=== PATIENT | male | born 1990 | race Caucasian/White ===

== ENCOUNTER → 2023-10-21 12:12 | Outpatient (REF) | payer OTHER, SELFPAY | LOC: MRI 3T 12:12 | PROVIDERS: ATTENDING PHYSICIAN Internal Medicine; FAMILY PHYSICIAN Physician Assistant Medical | DX: K50.00 Crohn's disease of small intestine without complications (principal) | CPT/HCPCS: 72197; 74183; A9575 ==

== ENCOUNTER 2024-05-31 22:27 | Inpatient (IN) | payer BC, SELFPAY ==
[2024-05-31] VITALS (7 sets, daily range): BP systolic 109–122; BP diastolic 63–80; BMI 18.7
[2024-05-31 16:55] LABS: % Basophils 0.4 % (0-2); % Eosinophils 0.1 % (0-6); % Immature Granulocytes 0.3 % (0-0.5); % Lymphocytes 11.4 % (20.5-51.1); % Monocytes 4.5 % (1.7-9.3); % Neutrophils 83.3 % (42.2-75.2); Absolute Lymphocytes 1.2 10^3/uL (1.2-3.4); Absolute Monocytes 0.5 10^3/uL (0.1-0.6); Absolute Neutrophils 8.6 10^3/uL (1.4-6.5); Hematocrit 39.4 % (39.0-52.0); Hemoglobin 13.1 g/dL (13.0-18.0); Mean Corp Hgb Conc. 33.2 g/dL (33.0-37.0); Mean Corpuscular Hgb 28.1 pg (27.0-31.0); Mean Corpuscular Volume 84.4 fL (80.0-94.0); Mean Platelet Volume 10.2 fL (7.4-10.4); Nucleated Red Blood Cells % 0 % (-); Platelet Count 251 10^3/uL (130-400); Red Blood Cell Count 4.67 10^6/uL (4.70-6.10); Red Cell Dist. Width 12.5 % (11.5-14.5); White Blood Cell Count 10.4 10^3/uL (4.8-10.8)
[2024-05-31 17:14] LABS: ALT (SGPT) 16 U/L (0-50); AST (SGOT) 25 U/L (17-59); Albumin 4.8 g/dl (3.5-5.0); Alkaline Phosphatase 49 U/L (38-126); Blood Urea Nitrogen 18 mg/dl (9-20); Calcium 9.9 mg/dl (8.4-10.2); Carbon Dioxide 24 mmol/L (22-30); Chloride 103 mmol/L (98-107); Estimated Creatinine Clearance 88 ml/min; Glucose 99 mg/dl (70-99); Lipase 109 U/L (23-300); Potassium 4.5 mmol/L (3.5-5.1); Sodium 140 mmol/L (135-145); Total Bilirubin 1.1 mg/dl (0.2-1.3); Total Protein 7.4 g/dl (6.3-8.2); eGFR > 60.00
[2024-05-31] MEDS: DILAUDID 0.5 MG IV ×2 (17:58→20:06)
[2024-05-31] MEDS: NSS 1000 IV (17:58)
--- NOTE | 2024-05-31 18:50 | ED.GENMED ---
History of Present Illness
General
Chief Complaint: Bowel Problem
Source: patient
Exam Limitations: none
Time Seen by Provider: 05/31/24 16:22
Nursing documentation reviewed up to this point in time: agreed with
History of Present Illness
History of Present Illness:
The patient is a pleasant 33-year-old man with a past medical history of Crohn's disease who reports 1 day of left lower abdominal pain, mild nausea, and feels as though this is a Crohn's flare. Patient reports that his pain is typically in his
left lower abdomen when this happens. He reports chills but no fever. He reports fatigue.
Past History
Past History
ED Past Medical History: Other (Crohn's Disease)
ED Past Surgical History: Other (Eye surgery)
Social History
Tobacco: Former smoker
Alcohol: None
Personal: Other
Living: other (with fiance')
Employment: Employed
Family History
Family History: Other
Review of Systems
Review of Systems
Allergies reviewed?: Yes
All Other Systems: ROS reviewed and negative except as documented in HPI and ROS
Constitutional: Reports no symptoms
EENT: Reports no symptoms
Respiratory: Reports no symptoms
Cardiac: Reports no symptoms
ABD/GI: Reports abdominal pain and nausea
: Reports no symptoms
Musculoskeletal: Reports no symptoms
Skin: Reports no symptoms
Neurological: Reports no symptoms
Endocrine: Reports no symptoms
Hematologic/Lymphatic: Reports no symptoms
Psychiatric: Reports no symptoms
Phy Exam
Physical Exam
Physical Exam:
Physical Exam
General: no apparent distress, not acutely ill
Neck: Dry mucous membrane
Heart: s1/s2 regular rate and rhythm, no murmur. equal radial pulses.
Lungs: no acute respiratory distress. clear bilaterally
Abdomen: Soft, nondistended, normal bowel sounds, left lower quadrant tenderness
Neuro: alert and oriented. no focal neurological deficits
Skin: no rash
Psychiatric: well kept. interactive and cooperative
Extremities: no edema. no calf tenderness. negative homans. good distal pulses
Course
Orders/Labs/Results
Orders:
Orders
05/31/24 16:41
Complete Blood Count/With Diff Urgent
Comprehensive Metabolic Panel Urgent
Lipase Urgent
05/31/24 17:44
0.9% Sodium Chloride 1000 ml [Nss] 1,000 ml IV BOLUS
05/31/24 17:56
HYDROmorphone [Dilaudid] 0.5 mg IV NOW STA
05/31/24 18:48
CT Abd/pel W Iv And Oral Contr Urgent
Comment:
Reason For Exam: LLQ pain, chrons
Iohexol [Omnipaque] See Protocol PO NOW STA
05/31/24 20:02
HYDROmorphone [Dilaudid] 0.5 mg IV NOW STA
05/31/24 20:09
Ondansetron Injectable [Zofran] 4 mg .ROUTE .STK-MED ONE
Ondansetron Injectable [Zofran] 4 mg IV NOW STA
05/31/24 22:06
MethylPREDNISolone PF [Solu-Medrol Pf] 20 mg IV ONCE ONE
05/31/24 22:08
Add On- LAB Urgent
Tests Added?: crp
Calprotectin, Fecal [S] Urgent
CDIFF [C difficile Antigen & Toxins] Urgent
QUIQUE Source: Feces/Stool
Specimen Description:
Abnormal Lab Results
05/31/24
16:41
RBC 4.67 L 10^6/uL
(4.70-6.10)
Absolute Neuts (auto) 8.6 H 10^3/uL
(1.4-6.5)
Neutrophils % 83.3 H %
(42.2-75.2)
Lymphocytes % 11.4 L %
(20.5-51.1)
05/31/24 16:41
05/31/24 16:41
Vital Signs
Initial and Last Documented VS:
Initial Vital Signs
Temp Pulse Resp BP Pulse Ox
97.8 F 71 16 118/79 100
05/31/24 15:47 05/31/24 15:47 05/31/24 15:47 05/31/24 15:47 05/31/24 15:47
Last Documented Vital Signs
Temp Pulse Resp BP Pulse Ox
97.8 F 55 14 110/64 98
05/31/24 15:47 05/31/24 19:52 05/31/24 19:52 05/31/24 19:52 05/31/24 19:52
MDM/Problems Addressed
Differential Diagnosis Includes:
Crohn's flare with colitis, intra-abdominal abscess, acute diverticulitis
MDM/Problems Addressed:
Patient presents with acute abdominal pain and nausea
Chronic conditions affecting care:
Crohn's disease
Acute Exacerbation and/or Progression of Chronic Illness:
Patient may have acute exacerbation of chronic Crohn's
*Radiology
Radiology exam reviewed: radiology read reviewed
*Pulse Oximetry
Patient hypoxic: no
*EKG
Interpreted by ED Provider?: NA
*Laboratory Tech Interpretation
Rate: Laboratory Tech- N/A
*Critical Care Note
Total Time (30-74mins, 75-104mins- exclusive of procedures): Not Applicable
Data Reviewed
Review of Other/Old Records Reveals: Discharge Summary (Patient was admitted in November 2022. CT showed signs of ileitis at that time)
Patient Management
Social determinants of health affecting care: Living situation and Strong social support
Discussion with other providers: Hospitalist and Other (Case discussed with Dr. Pham from GI. She recommended 20 mg of IV Solu-Medrol every 8 hours. I have also contacted colorectal service, Dr. Deric Gerber so he is aware patient is being
admitted)
Escalation/DeEscalation of care consider admission/obs:
Patient admitted for small bowel obstruction and Crohn's flare
ED Attending Note
-
Portions of this chart may have been created with voice recognition software.� Occasional wrong word or��sound alike� substitutions may have occurred due to the inherent limitations of voice recognition software.
Discharge Plan
Departure
Patient Disposition: Admit
Date of Disposition: 05/31/24
Time of Disposition: 21:53
Presentation/result/management discussed w/ accepting MD/DO: Hospitalist
Patient with high blood pressure during this ER visit?: No
Condition: Good
Covid-19: Not Applicable
Discharge Problem:
Crohn's ileitis, Small intestine obstruction
Prescriptions:
No Action
Humira 40 mg/0.8 mL Syringe Kit
40 mg SC Q2W
famotidine [Pepcid AC] 20 mg tablet
20 mg PO DAILY 35 Days Qty: 35 0RF
prednisone 10 mg Tablet
See Rx Instructions .ROUTE .COMPLEX Qty: 114 0RF
Rx Instructions:
Take By Mouth:
50 mg daily x7 days, 40 mg daily x7 days,
30 mg daily x7 days, 20 mg daily x7 days,
10 mg daily x7 days
Referrals:
Juan Jose Earl PA-C [Family Provider] -
Interventions
Interventions:
*Risk Screen - Suicide Last Done: 05/31/24 16:55
*General Assessment Last Done: 05/31/24 16:55
*Neglect/Abuse Screening Last Done: 05/31/24 16:55
*ED COVID-19 Vaccine History Last Done: 05/31/24 16:55
KH-Qkattk-Bmfgiqpnfy Assessment Last Done: 05/31/24 16:55
Discharge Date and Time
Print Language: BURKINAN
[2024-05-31] MEDS: OMNIPAQUE 50 ML PO (19:04)
[2024-05-31] MEDS: ZOFRAN 4 MG IV (20:10)
--- NOTE | 2024-05-31 22:13 | HPS.HSE ---
Family Physician
-
Family Physician: Juan Jose Earl
Chief Complaint
-
LLQ abdominal pain ? Crohn flare ?
History of Present Illness
HPI
33M HX Crohn's since 2019. seen at ER:
- reports 1 day of left lower abdominal pain
- Pusually pain is typically in his left lower abdomen when crohns flare
- associated mild nausea
- he feels as though this is a Crohn's flare
- reports chills but no fever.
- reports fatigue.
Medical History
Past Medical History
Past Medical History: Reports Other
Additional Past Medical History:
Crohn's Disease
Past Surgical History: Reports Other
Additional Past Surgical History:
Eye Surgery
Social History
Tobacco: Non-smoker
Alcohol: None
Drug: None
Family History
Family History: Not pertinent
Allergies / Home Medications
Allergies reflects when Allergies were last updated in [facility].
Home Medications with original date entered in [facility]
Allergy/Medication List:
Allergies
Allergy/AdvReac Type Severity Reaction Status Date / Time
No Known Allergies Allergy Verified 12/09/22 15:57
Home Medications
adalimumab 40 mg/0.8 mL subcutaneous syringe kit (Humira) 40 mg SC Q2W 12/09/22
Review of Systems
-
History Source: Patient
A 12 point ROS was completed and negative except as noted: Yes
Constitutional: Reports Fatigue and Chills; Denies Fever
EENT: Denies Sore Throat
Respiratory: Denies Cough or Trouble Breathing
Cardiac: Denies Chest Pain or Palpitations
Abdomen/GI: Reports Abdominal Pain and Nausea; Denies Vomiting, Diarrhea or Bloody Stools
: Denies Dysuria or Frequency
Neurological: Denies Dizzy or Headache
Psych: Denies Depression or Anxiety
Physical Exam
Vital Signs
Vital Signs
Temp Pulse Resp BP Pulse Ox
97.8 F 55 14 110/64 98
05/31/24 15:47 05/31/24 19:52 05/31/24 19:52 05/31/24 19:52 05/31/24 19:52
Physical Exam
General: Other (32y M resting comfortably in no distress.)
HEENT: Moist mucous membranes and PERRLA
Respiratory: Clear; No Wheezes, Rales or Rhonchi
Cardiac: S1/S2 and Regular Rhythm; No Murmur
GI: Soft, Non Distended, Normal Bowel Sounds and Other (Pos LLQ abdominal tenderness. No rebound / guarding.)
Musculoskeletal: No Clubbing, No Cyanosis and No Edema
Neuro: AO x 3
Laboratory Results
-
05/31/24 16:41
05/31/24 16:41
Laboratory Results
Total Bilirubin 1.1 mg/dl (0.2-1.3) 05/31/24 16:41
AST 25 U/L (17-59) 05/31/24 16:41
ALT 16 U/L (0-50) 05/31/24 16:41
Alkaline Phosphatase 49 U/L (38-126) 05/31/24 16:41
Lipase 109 U/L (23-300) 05/31/24 16:41
Data Reviewed
-
CT Scan: Report Reviewed by me
Lab Data: Labs Reviewed by me
Old Records: Reviewed
Impression/Plan
-
Reviewed VS:
Vital Signs
Temp Pulse Resp BP Pulse Ox
97.8 F 55 14 110/64 98
05/31/24 15:47 05/31/24 19:52 05/31/24 19:52 05/31/24 19:52 05/31/24 19:52
Abnormal Lab Results
05/31/24
16:41
RBC 4.67 L
Absolute Neuts (auto) 8.6 H
Neutrophils % 83.3 H
Lymphocytes % 11.[address] Abd/pel W Iv And Oral Contr
1. SEVERE CROHN'S DISEASE in the TERMINAL ILEUM with a 2.8 cm segment of severe circumferential wall thickening and submucosal edema causing a small bowel obstruction.
2. Severe stricture or spasm in the terminal ileum.
3. Small amount of pelvic ascites.
ASSESSMENT & PLAN
Pending Rx reconciliation
Crohn flare complicated with SBO ? partial: normal BM this AM , nausea
CT suggestive of Terminal ileal narrowing with inflammation vs stricture
Afebrile, nl WCC
HX anemia but current Hgb is stable and higher
HX GERD
- IV Solumedrol 20 gmq8h
- check fecal calprotectin
- Hold ABx for now monitor temp curve, symptoms, etc.
- Clear and IVF
- Narcotic analgesia
- PRN V anti emetics
- GI consult
DVT Px: SCD
Full code
IP MS
[2024-05-31] MEDS: SOLU-MEDROL PF 20 MG IV (22:45)
[2024-05-31 23:02] LABS: C-Reactive Protein < 5.00 mg/L (0.0-10.00)
--- NOTE | 2024-06-01 00:40 | PTCARENOTE ---
Received pt from ED off the stretcher. Pt able to walk to room and stand on scale. pt with a BP of 122/69 HR 68. Pt with mild complaints of abdominal pain after receiving dilaudid in the ED. Pt currently resting in bed, with equal respirations. POc
ongoing.
[2024-06-01] MEDS: DILAUDID 0.5 MG IV (04:53)
[2024-06-01] MEDS: NSS 1000 IV ×2 (04:54→18:29)
[2024-06-01 05:52] VITALS: BMI 18.7
[2024-06-01] MEDS: SOLU-MEDROL PF 20 MG IV ×3 (06:09→21:45)
[2024-06-01 07:39] VITALS: BP 105/64
[2024-06-01 07:39] LABS: Hematocrit 37.2 % (39.0-52.0); Hemoglobin 12.4 g/dL (13.0-18.0); Mean Corp Hgb Conc. 33.3 g/dL (33.0-37.0); Mean Corpuscular Hgb 28.6 pg (27.0-31.0); Mean Corpuscular Volume 85.7 fL (80.0-94.0); Mean Platelet Volume 10.9 fL (7.4-10.4); Platelet Count 242 10^3/uL (130-400); Red Blood Cell Count 4.34 10^6/uL (4.70-6.10); Red Cell Dist. Width 12.3 % (11.5-14.5); White Blood Cell Count 8.1 10^3/uL (4.8-10.8)
--- NOTE | 2024-06-01 08:06 | W.PN.HOSP.TC ---
Addendum entered and electronically signed by Lillian Vale MD 06/01/24 14:32:
I saw and evaluated the patient. I reviewed the resident�s note and agree with findings and plan as documented in the resident�s note.
Patient was started with methylprednisolone for Crohn's disease flare.
Clear liquid as tolerated.
IV fluid support, pain control.
GI/CRS on board
Original Note:
Today's Communication/Plan
-
MR enterography potentially tomorrow
Advance diet as tolerated
Potential discharge tomorrow
Assessment / Plan
Assessment / Plan
Impression: 33-year-old male with PMH of Crohn's disease who presented to ED on 05/31/2024 with complaints of 1 day history of LLQ abdominal pain, fatigue, nausea and chills without vomiting or fever.
Assessment/plan:
# Partial SBO secondary to Crohn's disease flare.
-Completed a course of risankizumab 04/30
-Remains afebrile
-High-dose steroids with Solu-Medrol for severe inflammation.
-CT abdomen/pelvis with IV and oral contrast 05/31/2024 reports SBO from severe Crohn's disease, minimal pelvic ascites.
-Colonoscopy 08/09/2023 reports endoscopic remission and pseudopolyps in cecum but unremarkable.
-C. difficile and fecal calprotectin pending, patient without BM in the past 24 hours.
-Colorectal consult.
-GI following.
-Advance diet as tolerated.
-Consider MR enterography if worsened.
-Patient follows Dr. Crooks outpatient.
-Diet advanced to clears, if tolerates advance to low residue in p.m.
-Follow fever curve.
DVT PPx: SCD
CODE STATUS: Full code
Data:
Colonoscopy 08/09/2023:
Patient appears to be in clinical and endoscopic remission. Likely small bowel with some cecal involvement. But no active inflammation seen; biopsy reports negative for active inflammation/granuloma/dysplasia.
- The entire examined colon is normal. Biopsied.
- Pseudopolyps in the cecum. Biopsied.
- The examined portion of the ileum was normal. Tight ICV but no endoscopic inflammation.
CT abdomen/pelvis with IV and oral contrast 06/10/2024:
1. SEVERE CROHN'S DISEASE in the TERMINAL ILEUM with a 2.8 cm segment of severe circumferential wall thickening and submucosal edema causing a small bowel obstruction.
2. Severe stricture or spasm in the terminal ileum.
3. Small amount of pelvic ascites.
Anticipated Discharge: > 48 hours
Subjective/Interval History
-
Date of Service: June 01, 2024
Patient seen and examined in the room lying comfortably in bed in no apparent cardiopulmonary distress. He states that his abdominal pain has resolved. He does not have any chills today. He denies fever, chest pain, palpitations, N/V/D.
Objective Data
-
Labs:
Laboratory Results
06/01/24
06:56
WBC 8.1
Hgb 12.4 L
Hct 37.2 L
Plt Count 242
Sodium Pending
Potassium Pending
Chloride Pending
Carbon Dioxide Pending
BUN Pending
Creatinine Pending
Glucose Pending
Calcium Pending
Vital Signs:
Vital Signs
Temp Pulse Resp BP Pulse Ox
97.5 F 60 17 105/64 99
06/01/24 07:39 06/01/24 07:39 06/01/24 07:39 06/01/24 07:39 06/01/24 07:39
Review of Systems
-
History Source: Patient
All other systems: Not reviewed unless documented
Constitutional: Reports No Symptoms; Denies Fever or Fatigue
EENT: Reports No Symptoms Reported
Respiratory: Reports No Symptoms; Denies Cough, Trouble Breathing or Wheezing
Cardiac: Reports No Symptoms; Denies Chest Pain or Palpitations
Abdomen/GI: Reports No Symptoms; Denies Abdominal Pain, Nausea, Vomiting or Diarrhea
Musculoskeletal: Reports No Symptoms
Skin: Reports No Symptoms
Neuro: Reports No Symptoms
Physical Exam
-
General: No Apparent Distress, Comfortable and Cachectic
HEENT: Normocephalic, Atraumatic and Moist Mucous Membranes
Respiratory: Clear to Auscultation; Negative Wheezes or Crackles
Cardiac: Regular Rhythm and S1/S2; Negative Murmur, Rub or Gallop
GI: Soft, Nontender, Nondistended and Normal Bowel Sounds; Negative Organomegaly
Rectal: Deferred by Provider
Musculoskeletal: No Clubbing, No Cyanosis and No Edema
Skin: Negative Rash
Neuro: Awake, Alert, Oriented, AO x 3 and Nonfocal/Grossly Intact
Psych: Calm and Intact Judgement/Insight
Data Reviewed
-
CT Scan: Report Reviewed by me and Discussed with Physician
Labs: Labs Reviewed by me and Discussed with Physician
Old Records: Reviewed
[2024-06-01 08:24] LABS: Blood Urea Nitrogen 17 mg/dl (9-20); Calcium 9.2 mg/dl (8.4-10.2); Carbon Dioxide 20 mmol/L (22-30); Chloride 104 mmol/L (98-107); Estimated Creatinine Clearance 97 ml/min; Glucose 115 mg/dl (70-99); Potassium 4.9 mmol/L (3.5-5.1); Sodium 140 mmol/L (135-145); eGFR > 60.00
--- NOTE | 2024-06-01 09:00 | CON.GI ---
Consultation
-
Date/Time Consultation Requested: 05/31/24
Date/Time Consultation Performed: 06/01/24
Requesting Provider: Dr. Salmon
Performing Provider: Dr. Pham
Reason for Consultation: Crohns, SBO
Medical History
Chief Complaint / HPI
Chief Complaint: SBO
History of Present Illness:
Dickson is a 33-year-old male with past medical history of small bowel Crohn's disease, initially started on Humira in 2022, with transition to Skyrizi in February who presents with left upper quadrant abdominal pain x 1 day found to have a small bowel
obstruction. He reports that yesterday morning he woke up and had a normal brown bowel movement, but noticed this bloating and discomfort sensation in his left upper quadrant. It improved somewhat but persisted throughout the day and then became
worse prompting him to come in for evaluation. He did feel better after receiving Dilaudid in the ER. He is passing gas, last bowel movement was yesterday morning around 6:30 AM. He just finished his loading doses for Skyrizi on 04/30/24.
Labs: CMP WNL, CRP <5, WBC 8.1, Hgb 12.4, MCV 85.7, Plt 242
CT A/P w/ IV Contrast: There is fluid and air distention of small bowel loops in the left side of the abdomen. There are distal ileal loops distended up to 4.1 in diameter in the central inferior pelvis. There is an 'small bowel feces sign' in a
distended distal ileal loop proximal to a 2.8 cm segment of severe circumferential wall thickening and submucosal edema in the terminal ileum. The distal 3 cm of terminal ileum demonstrates wall thickening and luminal narrowing suggesting stricture
or spasm secondary to Crohn's disease. There is a small amount of pelvic ascites.
IBD History:
-Started on Humira in October 2022, hospitalized briefly after his 2nd dose of Humira, started on steroids with improvement
-CT in July with fectalization of SB with ileus. He was seen by Dr. Christianson and recommended to change to Humira which started earlier in November as his fecal calpro was 783 in October. left sided pain and nausea prompting admission on 12/09/22. Repeat CT
on admission with concern for moderate terminal ilieitis and luminal narrowing- inflammation vs stricture with large amount of fecal material and dilation proximal to narrowing. He had CRP of 6.3 but elevated fecal calpro 339. He was started on IV
Solumedrol while in the hospital and was able to advance his diet and was DC to home 12/11/22 on low residue diet and prednisone taper 50 mg oral to decrease by 10 mg every week.
-He continued to have intermittent symptoms of nausea and MRE demonstarting persistent disease in addition to elevated fecal calpro (nml Humira level, no abs) --> therapy changed to Skyrizi
OBJECTIVE DATA:
-01/14/2024 fecal calpro 370
- -12/2023 Humira drug level 14.3, no AB, calprotectin 370, neg quantiferon, immune to HAV,
- -10/2023 normal CBC, CMP
- - 10/2023 MRE while in clinical remission for small bowel Crohn's on Humira every 2 weeks since 10/2022: Mild improvement but persistent wall thickening and enhancement of the distal ileum x 2. Improvement of the proximal dilation to the narrowing
areas. No fistula, inflammatory mass or abscess. Moderate constipation. Mild to moderate upper rectal wall enhancement with inflammatory proctitis
- - -09/2023 vitamin D 28, B12 390, folate 9.3, normal TSH, normal CBC, normal CMP, normal lipids
- - 07/2023 Colonoscopy for Crohn's disease of the small bowel on Humira every 2 weeks in clinical remission excellent prep to the terminal ileum. Difficult getting into the terminal ileum and unable to position to get biopsies but endoscopically it
was normal. Biopsies of the rectum, sigmoid, transverse, ascending and cecum were all normal tissue.
- - -05/18/23 CRP 0.5, stool calprotectin 116, hemoglobin 12.9, MCV 86, sed rate 2
NOVEMBER 2022 hospitalization and steroids
- - -12/09/22 CT Abd/Pelvis with IV and Oral contrast: Moderate terminal ileitis with luminal narrowing that may be secondary to inflammation or stricturing, and proximal to which there is a segment of dilated small bowel containing a large amount of
fecal material. Separate skip lesion in the ilium with wall thickening and luminal narrowing, proximal to which there is a moderate degree of fecal material. Findings are most compatible with an inflammatory ileitis in the setting of Crohn's
disease. Small bowel fecalization related to dysmotility, but no overt small bowel obstruction.
- - 10/2022 fecal calprotectin 783
- - 01/2020 colonoscopy for abdominal pain in the right lower quadrant. Good prep, endoscopically normal with nodularity of the ileocecal valve. The ileum was not intubated
- Biopsies of the ileocecal valve showed active ileitis with a nonnecrotizing granuloma in the right colon showed focal active colitis, no architectural distortion or dysplasia and rectal biopsies were normal
Past Medical History
Past Medical History: Other (Crohns, Vit. D Deficiency, Iron deficiency Anemia )
Past Surgical History: Other (eye surgery)
Social History
Tobacco: Non-Smoker
Alcohol: Occasional
Family History
Family History: Reviewed & Not Pertinent
Allergies / Home Medications
Allergy/AdvReac Type Severity Reaction Status Date / Time
No Known Allergies Allergy Verified 04/18/23 23:20
�Medication �Instructions �Recorded
Bridgetyrizi 05/31/24
Review of Systems
-
History Source: Patient
All other systems: A 12 pt ROS was Negative except as stated above in HPI
Vital Signs
Temp Pulse Resp BP Pulse Ox
97.5 F 60 17 105/64 99
06/01/24 07:39 06/01/24 07:39 06/01/24 07:39 06/01/24 07:39 06/01/24 07:39
Physical Exam
Exam
General: Well Developed, Well Nourished and No Apparent Distress
GI: Soft, Non Tender (very mild TTP in LUQ, no rebound or guarding), Non Distended and Normal Bowel Sounds
Results
WBC 8.1 10^3/uL (4.8-10.8) 06/01/24 06:56
Hgb 12.4 g/dL (13.0-18.0) L 06/01/24 06:56
Hct 37.2 % (39.0-52.0) L 06/01/24 06:56
MCV 85.7 fL (80.0-94.0) 06/01/24 06:56
Plt Count 242 10^3/uL (130-400) 06/01/24 06:56
Absolute Neuts (auto) 8.6 10^3/uL (1.4-6.5) H 05/31/24 16:41
Sodium 140 mmol/L (135-145) 06/01/24 06:56
Potassium 4.9 mmol/L (3.5-5.1) 06/01/24 06:56
Chloride 104 mmol/L (98-107) 06/01/24 06:56
Carbon Dioxide 20 mmol/L (22-30) L 06/01/24 06:56
BUN 17 mg/dl (9-20) 06/01/24 06:56
Creatinine 0.9 mg/dL (0.7-1.3) 06/01/24 06:56
Calcium 9.2 mg/dl (8.4-10.2) 06/01/24 06:56
Total Bilirubin 1.1 mg/dl (0.2-1.3) 05/31/24 16:41
AST 25 U/L (17-59) 05/31/24 16:41
ALT 16 U/L (0-50) 05/31/24 16:41
Alkaline Phosphatase 49 U/L (38-126) 05/31/24 16:41
Lipase 109 U/L (23-300) 05/31/24 16:41
Diagnostic Image Results:
Prior GI Procedures:
EGD:
Colonoscopy:
Assessment / Plan
-
33 y.o. male with small bowel crohns recently changed to Sknishaizi admitted with small bowel obstruction 2/2 Crohns stricture.
#SBO 2/2 Crohns stricture-- appearance appears to be more inflammatory rather than fibrostenotic, hopefully will respond well to high-dose steroids
-CT A/P shows severe Crohns disease in the TI with a 2.8 cm segment of severe circumferential wall thickening and submucosal edema causing a bowel obstruction; distal 3 cm of TI demonstrates wall thickening and luminal narrowing, suggesting
stricture or spasm 2/2 Crohns; small amount of pelvic ascites
-not fully obstructed-- passing gas, last BM was yesterday morning after onset of pain; non-toxic appearing, no N/V
-Started on Solumedrol 20mg q8 hrs last night
-CRP <5
-c.diff and fecal calprotectin pending
-completed loading doses of Skyrizi on 04/30, would not call this a failure of skyrizi at this point
Data Reviewed
-
Radiology: Report Reviewed by me
CT Scan: Report Reviewed by me
Old Records: Reviewed
-
-
Thank you for consultation and allowing me to participate in the patient's care. Please call the extraction machine operator GI physician during the after hours with any questions or concerns.
[2024-06-01 09:47] LABS: Prealbumin (Transthyretin) 15.6 mg/dl (17.6-36.0)
--- NOTE | 2024-06-01 11:20 | CON.CRS ---
Consultation
-
Performing Provider: Laurent Merlos MD
Reason for Consultation: SBO due to possible Crohn's flare
Medical History
-
History of Present Illness:
33-year-old male with PMH of Crohn's (first diagnosed October 2022, hospitalized with SBO due to TI inflammation November 2022, treated nonoperatively with steroids; was initially treated with Humira, but switched to Skyrizi; last colonoscopy July [address] Crooks, showing pseudopolyps in the cecum, otherwise normal mucosal appearance endoscopically, random biopsies negative for inflammation) who presents with 1 to 2 days of abdominal pain in the periumbilical region; he described it as similar
to his last Crohn's flare; denied any nausea or vomiting (he did vomit after oral contrast in the ED); denies fevers, but complains of chills; in the ED, WBC 10.4, Hb 13.1, CR 0.9, CRP less than 5, albumin 4.8, CT showing 2.8 cm segment of terminal
ileal thickening associated with small bowel obstruction (images reviewed and personally interpreted, no significant gastric distention); he was admitted for trial of nonoperative measures for Crohn's flare
Past Medical History
Past Medical History: None (As above)
Past Surgical History: Other (Eye surgery)
Social History
Tobacco: Non-Smoker
Alcohol: None
Drug: None
Family History
Family History: Other (Uncle with history of colon polyps, unsure if he had colon cancer; no other IBD)
Allergies / Home Medications
Allergy/AdvReac Type Severity Reaction Status Date / Time
No Known Allergies Allergy Verified 04/18/23 23:20
�Medication �Instructions �Recorded �Confirmed �Type
risankizumab-rzaa 360 mg/2.4 mL 360 mg SC UD Crohns disease 06/01/24 06/01/24 History
(150 mg/mL) subcut wearable
injector (Skyrizi)
Review of Systems
-
A 10 point review of systems was completed, and was negative except as per HPI.
Physical Exam
Vital Signs
Temp 97.5 F 06/01/24 07:39
Pulse 60 06/01/24 07:39
Resp Rate 17 06/01/24 07:39
Blood pressure 105/64 06/01/24 07:39
SaO2 99 06/01/24 07:39
05/31/24 06/01/24 06/02/24
06:59 06:59 06:59
Actual Weight 58.967 kg
Body Mass Index (BMI) 18.7
Lab Results / Allergies
06/01/24 06:56
06/01/24 06:56
WBC 8.1 10^3/uL (4.8-10.8) 06/01/24 06:56
Hgb 12.4 g/dL (13.0-18.0) L 06/01/24 06:56
Hct 37.2 % (39.0-52.0) L 06/01/24 06:56
Plt Count 242 10^3/uL (130-400) 06/01/24 06:56
Abs Immat Gran (auto) 0.0 10^3/uL (0-0.05) 05/31/24 16:41
Neutrophils % 83.3 % (42.2-75.2) H 05/31/24 16:41
Allergy/AdvReac Type Severity Reaction Status Date / Time
No Known Allergies Allergy Verified 04/18/23 23:20
Physical Exam
General: Well Developed and No Apparent Distress
HEENT: Normocephalic and Atraumatic
Respiratory: Non Labored Respirations
GI: Soft, Non Tender (No rebound or guarding) and Non Distended
Skin: Warm and Dry
Neuro: AO x 3
Data Reviewed
-
CT Scan: Image Personally Visualized and interpreted and Discussed with Patient
Assessment / Plan
-
33-year-old male with PMH of Crohn's (first diagnosed October 2022, hospitalized with SBO due to TI inflammation November 2022, treated nonoperatively with steroids; was initially treated with Humira, but switched to Skyrizi in February; last colonoscopy
July [address] Crooks, showing pseudopolyps in the cecum, otherwise normal mucosal appearance endoscopically, random biopsies negative for inflammation; TI appeared normal endoscopically, unable to take biopsies) who presents with 1 to 2 days
of abdominal pain in the periumbilical region; he described it as similar to his last Crohn's flare; denied any nausea or vomiting (he did vomit after oral contrast in the ED);in the ED, WBC 10.4, Hb 13.1, CR 0.9, CRP less than 5, albumin 4.8, CT
showing 2.8 cm segment of terminal ileal thickening associated with small bowel obstruction (images reviewed and personally interpreted, no significant gastric distention); he was admitted for trial of nonoperative measures for Crohn's flare
�Presentation consistent with Crohn's flare associated with partial small bowel obstruction (he is passing flatus, non-distended on exam)
�On review of his cross-sectional imaging from 2022, he had 2 areas of stricture at that point, this admission he only has 1 area of stricture this admission, but seems in similar position to his more distal stricture from a year ago; will d/w
radiology
�CRP is not elevated, raising concern for fibrostenotic stricture (versus inflammatory)
�Follow-up stool studies and fecal calprotectin
�Had lengthy discussion regarding recurrent nature of his terminal ileal disease despite being on a second biologic; explained that there is good long-term outcomes from ileocolic resection for terminal ileal Crohn's versus biologic therapy;
fortunately, he has no indications for urgent surgery, which carries increased risk for ostomy; therefore, would continue nonoperative measures with IV steroids and monitor for improvement
�If able to treat through this episode, would continue ongoing discussion regarding ileocolic resection vs biologic therapy as outpatient
�Appreciate GI; continue IV steroids
�Okay for clears from surgical standpoint
� Pain control with Tylenol/Toradol; would minimize narcotic use in setting of Crohn's (high risk of opioid tolerance long-term)
�Start DVT PPx with Lovenox (high risk for DVT in IBD)
� Appreciate hospitalist
--- NOTE | 2024-06-01 12:01 | CM ---
Dx - Chrohns flare w/SBO partial
Met with pt at bedside
Pt reports he lives with his in a 1 story home at listed address; 4 steps to enter
Independent, employed FT, drives
DME - none
SNF/HH - denies past hx
Has ride at discharge
PCP - Juan Jose Earl
Pharm - [facility]
Plan - anticipate home no needs when medically stable
[2024-06-01 14:50] VITALS: BMI 18.7
[2024-06-01 15:19] VITALS: BP 123/68
[2024-06-01 23:40] VITALS: BP 107/57
[2024-06-02] MEDS: NSS 1000 IV ×2 (05:44→19:30)
[2024-06-02] MEDS: SOLU-MEDROL PF 20 MG IV ×3 (05:44→23:41)
--- NOTE | 2024-06-02 05:51 | W.PN.HOSP.TC ---
Addendum entered and electronically signed by Lillian Vale MD 06/02/24 11:16:
I saw and evaluated the patient. I reviewed the resident�s note and agree with findings and plan as documented in the resident�s note.
Partial small bowel obstruction appeared to have resolved with dampening of inflammation.
Continue methylprednisolone for Crohn's disease flare.
Patient tolerated low residue diet, continue.
Doing well overall.
Original Note:
Today's Communication/Plan
-
Stool studies and fecal calprotectin pending
Advance diet as tolerated
Pain control with Tylenol
DVT PPx-Lovenox
Assessment / Plan
Assessment / Plan
Impression: 33-year-old male with PMH of Crohn's disease who presented to ED on 05/31/2024 with complaints of 1 day history of LLQ abdominal pain, fatigue, nausea and chills without vomiting or fever.
Assessment/plan:
# Partial SBO secondary to Crohn's stricture.
-Remains afebrile.
-Inflammatory process vs fibrostenotic stricture, patient able to pass flatus.
-No indication for urgent surgery, will continue Solu-Medrol 20 mg Q8H per Colorectal.
-Tolerated clears, Will advance to low residue today. If he tolerates, transition to steroid taper with 40 mg prednisone.
-Stool studies and fecal calprotectin pending, no BM in 48 hours.
-Colorectal appreciated.
-Appreciate GI.
-Pain control with Tylenol or Toradol.
-F/U Dr. Crooks with scheduled appointment 06/23
#Mild leukocytosis.
-Most likely from high dose steroids.
-Monitor fever curve.
DVT PPx: Lovenox
CODE STATUS: Full code
Data:
Colonoscopy 08/09/2023:
Patient appears to be in clinical and endoscopic remission. Likely small bowel with some cecal involvement. But no active inflammation seen; biopsy reports negative for active inflammation/granuloma/dysplasia.
- The entire examined colon is normal. Biopsied.
- Pseudopolyps in the cecum. Biopsied.
- The examined portion of the ileum was normal. Tight ICV but no endoscopic inflammation.
CT abdomen/pelvis with appreciated contrast 06/10/2024:
1. SEVERE CROHN'S DISEASE in the TERMINAL ILEUM with a 2.8 cm segment of severe circumferential wall thickening and submucosal edema causing a small bowel obstruction.
2. Severe stricture or spasm in the terminal ileum.
3. Small amount of pelvic ascites.
Anticipated Discharge: Within 24 hours
Subjective/Interval History
-
Date of Service: June 02, 2024
Patient seen and examined in the room today. He reports that he has not had any BM in the past 48 hours. Otherwise, he does not have any abdominal pain, fever, chills, headaches, chest pain, shortness of breath, bleeding. He had a discussion with
colorectal and has not decided on the options to go with. If he is able to tolerate low residue today, then he will be discharged
Objective Data
-
Labs:
Laboratory Results
06/02/24
05:47
WBC Pending
Hgb Pending
Hct Pending
Plt Count Pending
Sodium Pending
Potassium Pending
Chloride Pending
Carbon Dioxide Pending
BUN Pending
Creatinine Pending
Glucose Pending
Calcium Pending
Vital Signs:
Vital Signs
Temp Pulse Resp BP Pulse Ox
97.8 F 57 18 107/57 97
06/01/24 23:40 06/01/24 23:40 06/01/24 23:40 06/01/24 23:40 06/01/24 23:40
I&O
05/31/24 06/01/24 06/02/24
06:59 06:59 06:59
Intake Total 660 / 660
Balance 660 / 660
Review of Systems
-
History Source: Patient
All other systems: Not reviewed unless documented
Constitutional: Reports No Symptoms; Denies Fever or Fatigue
EENT: Reports No Symptoms Reported
Respiratory: Reports No Symptoms; Denies Cough, Trouble Breathing or Wheezing
Cardiac: Reports No Symptoms; Denies Chest Pain or Palpitations
Abdomen/GI: Reports No Symptoms; Denies Abdominal Pain, Nausea, Vomiting or Diarrhea
Musculoskeletal: Reports No Symptoms
Skin: Reports No Symptoms
Neuro: Reports No Symptoms
Physical Exam
-
General: No Apparent Distress, Comfortable and Cachectic
HEENT: Normocephalic, Atraumatic and Moist Mucous Membranes
Respiratory: Clear to Auscultation; Negative Wheezes or Crackles
Cardiac: Regular Rhythm and S1/S2; Negative Murmur, Rub or Gallop
GI: Soft, Nontender, Nondistended and Normal Bowel Sounds; Negative Organomegaly
Rectal: Deferred by Provider
Musculoskeletal: No Clubbing, No Cyanosis and No Edema
Skin: Negative Rash
Neuro: Awake, Alert, Oriented, AO x 3 and Nonfocal/Grossly Intact
Psych: Calm and Intact Judgement/Insight
Data Reviewed
-
CT Scan: Report Reviewed by me and Discussed with Physician
Labs: Labs Reviewed by me and Discussed with Physician
Old Records: Reviewed
[2024-06-02 06:00] VITALS: BMI 18.7
[2024-06-02 06:29] LABS: Hemoglobin 13.3 g/dL (13.0-18.0); Mean Corp Hgb Conc. 33.3 g/dL (33.0-37.0); Mean Corpuscular Hgb 28.9 pg (27.0-31.0); Mean Corpuscular Volume 86.8 fL (80.0-94.0); Mean Platelet Volume 10.9 fL (7.4-10.4); Platelet Count 280 10^3/uL (130-400); Red Blood Cell Count 4.61 10^6/uL (4.70-6.10); Red Cell Dist. Width 12.6 % (11.5-14.5); White Blood Cell Count 13.5 10^3/uL (4.8-10.8)
[2024-06-02 06:57] LABS: Blood Urea Nitrogen 19 mg/dl (9-20); Calcium 9.7 mg/dl (8.4-10.2); Carbon Dioxide 26 mmol/L (22-30); Chloride 102 mmol/L (98-107); Estimated Creatinine Clearance 98 ml/min; Glucose 135 mg/dl (70-99); Potassium 4.4 mmol/L (3.5-5.1); Sodium 143 mmol/L (135-145); eGFR > 60.00
[2024-06-02 08:08] VITALS: BP 107/64
--- NOTE | 2024-06-02 08:34 | W.PN.GI.CBS2 ---
Today's Communication / Plan
-
Advance to low residue diet- if continues to improve will transition to PO steroids
Assessment / Plan
-
33 y.o. male with small bowel crohns recently changed to Skyrizi admitted with small bowel obstruction 2/2 Crohns stricture.
#SBO 2/2 Crohns stricture-- appearance appears to be more inflammatory rather than fibrostenotic, hopefully will respond well to high-dose steroids
-CT A/P shows severe Crohns disease in the TI with a 2.8 cm segment of severe circumferential wall thickening and submucosal edema causing a bowel obstruction; distal 3 cm of TI demonstrates wall thickening and luminal narrowing, suggesting
stricture or spasm 2/2 Crohns; small amount of pelvic ascites
-not fully obstructed-- passing gas, last BM was AM of 05/31, no N/V and passing gas
-Started on Solumedrol 20mg q8 hrs on 05/31
-CRP <5
-c.diff and fecal calprotectin pending BM
-completed loading doses of Skyrizi on 04/30, would not call this a failure of skyrizi at this point--first SC inj. due on (06/04)
-tolerating CLD, will advance to low residue. If tolerates well today, will plan to transition to 40mg Prednisone daily with taper-- depending on clinical course today w/ diet, can discuss d/c tonight vs. tomorrow
-follow-up with Dr. Crooks scheduled for 06/23 @ 9 AM.
-will continue to follow
Subjective
Subjective
Date of Service: June 02, 2024
Patient overall doing well this morning. He was started on CLD last night, no issues. He is passing lots of flatus, last BM was morning of 05/31. Wants to try advancing diet.
Objective
Data Reviewed
Laboratory Data:
Laboratory Results
06/02/24 06:01
06/02/24 06:01
Laboratory Results
Total Bilirubin 1.1 mg/dl (0.2-1.3) 05/31/24 16:41
AST 25 U/L (17-59) 05/31/24 16:41
ALT 16 U/L (0-50) 05/31/24 16:41
Alkaline Phosphatase 49 U/L (38-126) 05/31/24 16:41
Lipase 109 U/L (23-300) 05/31/24 16:41
Vital Signs and I&O:
Vital Signs
Temp Pulse Resp BP Pulse Ox
98.1 F 61 16 107/64 100
06/02/24 08:08 06/02/24 08:08 06/02/24 08:08 06/02/24 08:08 06/02/24 08:08
I&O
06/01/24 06/02/24 06/03/24
06:59 06:59 06:59
Intake Total 1140 / 1140
Balance 1140 / 1140
Physical Exam
Physical Exam
HEENT: Anicteric and Moist mucous membranes
Cardiology: Normal Sinus Rhythm
Pulmonary: Clear
GI: Soft, Non Distended and Non Tender
Extremities: No Edema
Neuro: Non Focal
--- NOTE | 2024-06-02 09:40 | W.PN.CRS1 ---
Today's Communication / Plan
-
No surgery at this time.
Diet advanced and possible discharge.
Follow-up with Dr. Merlos in the office.
Assessment/Plan
-
Crohn's flare. Clinically improved on steroids.
Diet advanced to low residue.
No plans for surgery at this time.
Disposition as per the primary team.
Subjective Data
Subjective Data
Date of Service: June 02, 2024
He feels much better. No pain and his appetite is normal. He is passing flatus.
Objective Data
-
Vital Signs
Temp Pulse Resp BP Pulse Ox
98.1 F 61 16 107/64 100
06/02/24 08:08 06/02/24 08:08 06/02/24 08:08 06/02/24 08:08 06/02/24 08:08
Intake & Output
06/01/24 06/02/24 06/03/24
06:59 06:59 06:59
Intake Total 1140 / 1140
Balance 1140 / 1140
Intake:
Oral fluids 1140 / 1140
Other:
Number of approximated MODERATE 2 3
amounts of urine
Lab Results
06/02/24 06:01
06/02/24 06:01
Physical Exam
-
General: No Acute Distress
Abdomen: Soft, Non Distended and Non Tender
--- NOTE | 2024-06-02 12:51 | CM ---
CM following re: discharge planning.
Reviewed pt's chart, met with pt and pt's parents at bedside.
Pt reports he feels much better and is independent in all areas [employer], works, drives.
D/C plan: home no needs. Parents to transport at discharge.
CM will follow with discharge plan updates as needed.
[2024-06-02 15:00] VITALS: BP 109/70
[2024-06-02 22:45] VITALS: BP 118/74
[2024-06-03 05:22] VITALS: BMI 18.9
[2024-06-03 05:42] LABS: Hematocrit 35.3 % (39.0-52.0); Hemoglobin 11.8 g/dL (13.0-18.0); Mean Corp Hgb Conc. 33.4 g/dL (33.0-37.0); Mean Corpuscular Hgb 28.6 pg (27.0-31.0); Mean Corpuscular Volume 85.7 fL (80.0-94.0); Mean Platelet Volume 10.5 fL (7.4-10.4); Platelet Count 224 10^3/uL (130-400); Red Blood Cell Count 4.12 10^6/uL (4.70-6.10); Red Cell Dist. Width 12.7 % (11.5-14.5); White Blood Cell Count 13.5 10^3/uL (4.8-10.8)
[2024-06-03] MEDS: SOLU-MEDROL PF 20 MG IV (06:35)
[2024-06-03 06:42] LABS: Blood Urea Nitrogen 20 mg/dl (9-20); Calcium 9.2 mg/dl (8.4-10.2); Carbon Dioxide 28 mmol/L (22-30); Chloride 104 mmol/L (98-107); Estimated Creatinine Clearance 98 ml/min; Glucose 118 mg/dl (70-99); Potassium 4.1 mmol/L (3.5-5.1); Sodium 142 mmol/L (135-145); eGFR > 60.00
[2024-06-03 07:35] VITALS: BP 116/70
[2024-06-03] MEDS: NSS IV (07:47)
--- NOTE | 2024-06-03 07:58 | W.PN.HOSP.TC ---
Addendum entered and electronically signed by Lillian Vale MD 06/03/24 11:55:
I saw and evaluated the patient. I reviewed the resident�s note and agree with findings and plan as documented in the resident�s note.
Crohn's flare has significantly improved. Patient tolerating solids well.
Continue prednisone taper 40 mg x 1 week, decrease 10 mg every week until off or until further directed by GI.
Good for discharge today
Original Note:
Today's Communication/Plan
-
Steroid taper
Discharge planning
Assessment / Plan
Assessment / Plan
Impression: 33-year-old male with PMH of Crohn's disease who presented to ED on 05/31/2024 with complaints of 1 day history of LLQ abdominal pain, fatigue, nausea and chills without vomiting or fever.
Assessment/plan:
# Partial SBO secondary to Crohn's flare.
-Improved. No indication for surgery at this time.
-Inflammatory process vs fibrostenotic stricture, patient able to pass flatus.
-Prednisone 40 mg today.
-Prednisone taper starting tomorrow.
-Colorectal appreciated.
-Appreciate GI.
-Pain control with Tylenol or Toradol.
-F/U Dr. Crooks with scheduled appointment 06/23, and Dr. Merlos (colorectal) outpatient.
#Mild leukocytosis.
-Most likely from high dose steroids.
-Monitor fever curve.
DVT PPx: Lovenox
CODE STATUS: Full code
Data:
Colonoscopy 08/09/2023:
Patient appears to be in clinical and endoscopic remission. Likely small bowel with some cecal involvement. But no active inflammation seen; biopsy reports negative for active inflammation/granuloma/dysplasia.
- The entire examined colon is normal. Biopsied.
- Pseudopolyps in the cecum. Biopsied.
- The examined portion of the ileum was normal. Tight ICV but no endoscopic inflammation.
CT abdomen/pelvis with appreciated contrast 06/10/2024:
1. SEVERE CROHN'S DISEASE in the TERMINAL ILEUM with a 2.8 cm segment of severe circumferential wall thickening and submucosal edema causing a small bowel obstruction.
2. Severe stricture or spasm in the terminal ileum.
3. Small amount of pelvic ascites.
Anticipated Discharge: Today
Subjective/Interval History
-
Date of Service: June 03, 2024
I saw and examined the patient today. Patient was sitting on a chair comfortably in no acute distress. He reports that he is feeling better, had a normal BM yesterday without any blood or mucus in the stool. Reports abdominal pain has resolved,
does not have any chest pain or shortness of breath today. He will set up appointment with colorectal surgery outpatient and already has an appointment with his regular GI doctor.
Objective Data
-
Labs:
Laboratory Results
06/03/24
05:34
WBC 13.5 H
Hgb 11.8 L
Hct 35.3 L
Plt Count 224
Sodium 142
Potassium 4.1
Chloride 104
Carbon Dioxide 28
BUN 20
Creatinine 0.9
Glucose 118 H
Calcium 9.2
Vital Signs:
Vital Signs
Temp Pulse Resp BP Pulse Ox
98.3 F 66 16 116/70 100
06/03/24 07:35 06/03/24 07:35 06/03/24 07:35 06/03/24 07:35 06/03/24 07:35
I&O
06/02/24 06/03/24 06/04/24
06:59 06:59 06:59
Intake Total 1140 / 1140 1620 / 1620
Output Total 200 / 200
Balance 1140 / 1140 1420 / 1420
Review of Systems
-
History Source: Patient
All other systems: Not reviewed unless documented
Constitutional: Reports No Symptoms; Denies Fever or Fatigue
EENT: Reports No Symptoms Reported
Respiratory: Reports No Symptoms; Denies Cough, Trouble Breathing or Wheezing
Cardiac: Reports No Symptoms; Denies Chest Pain or Palpitations
Abdomen/GI: Reports No Symptoms; Denies Abdominal Pain, Nausea, Vomiting or Diarrhea
Musculoskeletal: Reports No Symptoms
Skin: Reports No Symptoms
Neuro: Reports No Symptoms
Physical Exam
-
General: No Apparent Distress, Comfortable and Cachectic
HEENT: Normocephalic, Atraumatic and Moist Mucous Membranes
Respiratory: Clear to Auscultation; Negative Wheezes or Crackles
Cardiac: Regular Rhythm and S1/S2; Negative Murmur, Rub or Gallop
GI: Soft, Nontender, Nondistended and Normal Bowel Sounds; Negative Organomegaly
Rectal: Deferred by Provider
Musculoskeletal: No Clubbing, No Cyanosis and No Edema
Skin: Negative Rash
Neuro: Awake, Alert, Oriented, AO x 3 and Nonfocal/Grossly Intact
Psych: Calm and Intact Judgement/Insight
Data Reviewed
-
CT Scan: Report Reviewed by me and Discussed with Physician
Labs: Labs Reviewed by me and Discussed with Physician
Old Records: Reviewed
--- NOTE | 2024-06-03 08:30 | W.PN.GI.CBS2 ---
Today's Communication / Plan
-
Discharge today on oral steroids. Follow-up wtih Dr. Crooks. GI will sign off, please call with questions.
Assessment / Plan
-
33 y.o. male with small bowel crohns recently changed to Skyrizi admitted with small bowel obstruction 2/2 Crohns stricture.
#SBO 2/2 Crohns stricture-- appearance appears to be more inflammatory rather than fibrostenotic, hopefully will respond well to high-dose steroids
-CT A/P shows severe Crohns disease in the TI with a 2.8 cm segment of severe circumferential wall thickening and submucosal edema causing a bowel obstruction; distal 3 cm of TI demonstrates wall thickening and luminal narrowing, suggesting
stricture or spasm 2/2 Crohns; small amount of pelvic ascites
-not fully obstructed-- passing gas, last BM was AM of 05/31, no N/V and passing gas
-Started on Solumedrol 20mg q8 hrs on 05/31 -> transition to PO Steroids today, 40mg Prednisone with plans to taper as outpatient-- 40mg x1 week, 30 mg x1 week, 20mg x1 week, 10mg x1 week
-pepcid 20mg daily for cytoprotection (discussed with patient)
-Vit. D +Ca supplementation (discussed with patient)
-CRP <5
-c.diff and fecal calprotectin pending BM
-completed loading doses of Skyrizi on 04/30, would not call this a failure of skyrizi at this point--first SC inj. due on (06/04)
-follow-up with Dr. Crooks scheduled for 06/23 @ 9 AM.
Okay for discharge today on oral steroids. Outpatient follow-up with Dr. Crooks.
Subjective
Subjective
Date of Service: June 03, 2024
Patient feeling well this morning, walking around. Denies any N/V/abdominal pain. Tolerating low residue diet. Passing gas.
Objective
Data Reviewed
Laboratory Data:
Laboratory Results
06/03/24 05:34
06/03/24 05:34
Laboratory Results
Total Bilirubin 1.1 mg/dl (0.2-1.3) 05/31/24 16:41
AST 25 U/L (17-59) 05/31/24 16:41
ALT 16 U/L (0-50) 05/31/24 16:41
Alkaline Phosphatase 49 U/L (38-126) 05/31/24 16:41
Lipase 109 U/L (23-300) 05/31/24 16:41
Vital Signs and I&O:
Vital Signs
Temp Pulse Resp BP Pulse Ox
98.3 F 66 16 116/70 100
06/03/24 07:35 06/03/24 07:35 06/03/24 07:35 06/03/24 07:35 06/03/24 07:35
I&O
06/02/24 06/03/24 06/04/24
06:59 06:59 06:59
Intake Total 1140 / 1140 1620 / 1620
Output Total 200 / 200
Balance 1140 / 1140 1420 / 1420
Physical Exam
Physical Exam
HEENT: Anicteric and Moist mucous membranes
Cardiology: Normal Sinus Rhythm
Pulmonary: Clear
GI: Soft, Non Distended and Non Tender
Extremities: No Edema
Neuro: Non Focal
--- NOTE | 2024-06-03 08:51 | W.PN.CRS1 ---
Today's Communication / Plan
-
Will sign off, okay for discharge
Assessment/Plan
-
Crohn's flare. Clinically improved on steroids.
Diet advanced to low residue.
No plans for surgery at this time.
Disposition as per the primary team.
Will sign off, please contact us if surgical issues arise
Follow-up in the office with Dr. Merlos
Subjective Data
Subjective Data
Date of Service: June 03, 2024
Patient states he has no issues. He denies any blood in his stools. He has no pain. He denies nausea or vomiting. He is tolerating diet.
Objective Data
-
Vital Signs
Temp Pulse Resp BP Pulse Ox
98.3 F 66 16 116/70 100
06/03/24 07:35 06/03/24 07:35 06/03/24 07:35 06/03/24 07:35 06/03/24 07:35
Intake & Output
06/02/24 06/03/24 06/04/24
06:59 06:59 06:59
Intake Total 1140 / 1140 1620 / 1620
Output Total 200 / 200
Balance 1140 / 1140 1420 / 1420
Intake:
Oral fluids 1140 / 1140 660 / 660
IV fluids (Total) 960 / 960
Output:
Urine, Voided 200 / 200
Other:
Number of approximated MODERATE 3 2
amounts of urine
Number of approximated LARGE 2
amounts of urine
Lab Results
06/03/24 05:34
06/03/24 05:34
Physical Exam
-
General: No Acute Distress and AOx3
Abdomen: Soft, Non Distended and Non Tender
Skin: Warm and Dry
[2024-06-03 10:16] LABS: % Eosinophils 0.1 % (0-6); % Immature Granulocytes 0.4 % (0-0.5); % Lymphocytes 6.5 % (20.5-51.1); % Monocytes 3.5 % (1.7-9.3); % Neutrophils 89.5 % (42.2-75.2); Absolute Immature Granulocytes 0.1 10^3/uL (0-0.05); Absolute Lymphocytes 0.9 10^3/uL (1.2-3.4); Absolute Monocytes 0.5 10^3/uL (0.1-0.6); Nucleated Red Blood Cells % 0 % (-)
--- NOTE | 2024-06-03 11:46 | CM ---
CM following re: discharge planning.
Reviewed pt's chart, met with pt.
According to MD pt is medically stable to be discharged today. Pt is aware and he stated his spouse is coming to transport him home. pt is independent with functional ability, no after care VN services indicated. Pt stated he feels very well.
D/C plan: home no needs. Spouse to transport.
[2024-06-03] MEDS: DELTASONE 40 MG PO (11:58)
[2024-06-03 12:06] VITALS: BP 127/83
--- NOTE | 2024-06-03 13:46 | W.DCSUMMARY ---
Addendum entered and electronically signed by Lillian Vale MD 06/03/24 14:11:
typo noted by attending:
pt was 'started' (NOT sedated) on high-dose corticosteroid for Crohn's flare.
Original Note:
Discharge Summary
Discharge Data
Date of Admission: 05/31/24
Date of Discharge: 06/03/24
-
Pending Results: No
Hospital Course
Discharging Physician : Lillian Vale MD ; Dony Roca MD
Disposition : Home
Primary care physician : Juan Jose Earl PA
Principal Discharge diagnosis : Partial small bowel obstruction, Crohn's flare
Hospital Course : 33-year-old male with PMH of Crohn's disease who presented to ED on 05/31/2024 with complaints of 1 day history of LLQ abdominal pain, fatigue, nausea and chills without vomiting or fever. While in the ED, his vitals were
unremarkable, a CT abdomen/pelvis with IV and oral contrast done in the ED was positive for partial small bowel obstruction and severe stricture/spasm in the terminal ileum. Colorectal surgery was consulted urgently and patient was admitted for
further evaluation and management.
While in the hospital, patient was seen in consultation with gastroenterology and was sedated on high-dose corticosteroid and pain controlled on Tylenol. Patient had a total of 3 nights stay in the hospital with improvement of his symptoms. He was
able to tolerate clear liquids and low residue diet. He was also able to have a formed BM on his second day of stay negative for blood or mucus.
Condition on discharge: Awake, alert and oriented x3, answer question properly, able to make own decision and take care of activities of daily living, speech clear and comprehensive, continent of the bowel and bladder, ambulate without recruitment and outreach assistant,
goes home where lives independently. Patient has been instructed to take 40 mg prednisone taper and decrease 10 mg every week until further directed by GI. Patient has been instructed to follow-up with his primary care in less than 1 week, and
his primary GI doctor Dr. Whitmore and colorectal surgery Dr. Merlos as outpatient.
Important imaging findings :
CT abdomen/pelvis with appreciated contrast 06/10/2024:
1. SEVERE CROHN'S DISEASE in the TERMINAL ILEUM with a 2.8 cm segment of severe circumferential wall thickening and submucosal edema causing a small bowel obstruction.
2. Severe stricture or spasm in the terminal ileum.
3. Small amount of pelvic ascites.
Discharge Plan
-
Patient Disposition: Home (Routine Discharge)
Discharge Diagnosis/Procedures: Partial Small bowel obstruction, Crohn's flare
Condition: Good
Diet: Regular
Activity: No restrictions
Driving Restrictions: As prior to admission
Bathing Restrictions: None
Referrals:
Juan Jose Earl PA-C [Family Provider] - in less than 1 week
Laurent Merlos MD [Active] - in three to four weeks
Omaira Crooks DO [Active] - 06/23/24 9:00 am
Prescriptions:
New
prednisone 10 mg tablet
10 mg PO DAILY Qty: 74 0RF
Rx Instructions:
Take 40 mg(4tabs) daily for 7 days,30 mg(3tabs) daily for 7 days,20 mg(2tabs) daily for 7 days,10 mg daily for 7 days
Continued
Skyrizi 360 mg/2.4 mL (150 mg/mL) wearable injector
360 mg SC UD
Rx Instructions:
just compleated the 3 inital infusions, due to start injections on this week
Discharge Orders:
Discharge Patient (As Directed); Ordered 06/03/24
Ordered By: Dony Roca
Discharge Date and Time
Discharge Date/Time: 06/03/24 12:10
Print Language: SOMALI
== END 2024-06-03 12:10 | disposition home or self-care (01) | DRG 386 ==
LOC: 3 WEST ACU 22:27
PROVIDERS: Student in an Organized Health Care Education/Training Program; ADMITTING PHYSICIAN Internal Medicine; ATTENDING PHYSICIAN Internal Medicine; CONSULT PHYSICIAN Internal Medicine; EMERGENCY PHYSICIAN Emergency Medicine; FAMILY PHYSICIAN Physician Assistant Medical; OTHER PHYSICIAN Surgery
DX: K50.012 Crohn's disease of small intestine with intestinal obstruction (principal); R64 Cachexia; Z68.1 Body mass index [BMI] 19.9 or less, adult; D50.9 Iron deficiency anemia, unspecified; D72.828 Other elevated white blood cell count; T38.0X5A Adverse effect of glucocorticoids and synthetic analogues, initial encounter; Z87.891 Personal history of nicotine dependence
CPT/HCPCS: 74177; 80048; 80053; 83690; 84134; 85025; 85027; 86140; 96374; 96375; 96376; 99285; Q9967

== ENCOUNTER 2024-06-08 05:44 | Inpatient (IN) | payer BC, SELFPAY ==
[2024-06-08] VITALS (7 sets, daily range): BP systolic 108–129; BP diastolic 64–83; BMI 18.4
[2024-06-08 03:23] LABS: % Basophils 0.1 % (0-2); % Eosinophils 0.4 % (0-6); % Immature Granulocytes 0.9 % (0-0.5); % Lymphocytes 17.1 % (20.5-51.1); % Monocytes 7.2 % (1.7-9.3); % Neutrophils 74.3 % (42.2-75.2); Absolute Eosinophils 0.1 10^3/uL (0-0.7); Absolute Immature Granulocytes 0.1 10^3/uL (0-0.05); Absolute Lymphocytes 2.5 10^3/uL (1.2-3.4); Absolute Neutrophils 10.8 10^3/uL (1.4-6.5); Hemoglobin 13.4 g/dL (13.0-18.0); Mean Corp Hgb Conc. 33.5 g/dL (33.0-37.0); Mean Corpuscular Hgb 28.4 pg (27.0-31.0); Mean Corpuscular Volume 84.7 fL (80.0-94.0); Mean Platelet Volume 10.3 fL (7.4-10.4); Nucleated Red Blood Cells % 0 % (-); Platelet Count 332 10^3/uL (130-400); Red Blood Cell Count 4.72 10^6/uL (4.70-6.10); Red Cell Dist. Width 12.6 % (11.5-14.5); White Blood Cell Count 14.5 10^3/uL (4.8-10.8)
[2024-06-08 03:36] LABS: Lactic Acid 1.5 mmol/L (0.7-2.0)
--- NOTE | 2024-06-08 03:37 | ED.GENMED ---
History of Present Illness
General
Chief Complaint: Abdominal Pain
Source: patient, spouse and previous hospital records (Recent hospitalization May 31 to June 03 for similar complaint. Acute Crohn's flare with partial small bowel obstruction.)
Exam Limitations: none
Time Seen by Provider: 06/08/24 03:28
Nursing documentation reviewed up to this point in time: agreed with
History of Present Illness
History of Present Illness:
This is a 34-year-old gentleman with history of Crohn's disease recently hospitalized May 31 to June 03 with acute Crohn's flare with significant terminal ileal inflammation and stricture causing partial small bowel obstruction. He did
well with bowel rest, IV steroids and was discharged to home with tapering dose of prednisone beginning at 40 mg daily for 1 week then taper from there.
Patient states he had been doing well, soft foods and increased his oral intake yesterday but has maintained a low residue diet. He awoke at 1 AM with abrupt onset of severe left-sided abdominal pain accompanied with nausea. Very similar pain he
experienced last week and similar pain with previous Crohn's flares. Prior to last week he had been doing well with no recurrent flares for approximately 1-1/2 years.
He denies fever but does admit to occasional chills. Last bowel movement was 2 days ago.
He has been maintained on Skyrizi since February of this year. Prior to that maintained on Humira.
Patient noted to have an episode of lightheadedness, diaphoresis and pallor while in the waiting room. Quickly brought back to ED room 2 and symptoms resolved promptly with lying supine.
Past History
Past History
ED Past Medical History: Other (Crohn's Disease)
ED Past Surgical History: Other (Eye surgery)
Social History
Tobacco: Former smoker
Alcohol: None
Personal:
Living: with family
Employment: Employed
Family History
Family History: Other (Noncontributory)
Phy Exam
Physical Exam
Physical Exam:
GENERAL: 34-year-old gentleman appears his stated age, awake and alert, pleasant, appears in mild distress related to pain. Easily communicative. is accompanying.
EYE: anicteric
NECK: Supple, nontender, no meningismus, no significant adenopathy.
ENT: oral mucosa is moist. No rhinorrhea.
CARDIAC: Regular rate and rhythm. no murmur.
LUNGS: Clear breath sounds bilaterally, no acute respiratory distress, no wheezes/rales/rhonchi
ABDOMEN: Soft, nondistended, exquisite tenderness left mid to left lower quadrant as well as mild tenderness left upper quadrant, no r/g, no cvat. Mildly hyperactive bowel sounds.
NEUROLOGICAL: Alert and oriented x3, no focal neuro deficits.
SKIN: Warm and dry, normal color, skin intact. No rash.
MUSCULOSKELETAL: No C/C/E. peripheral pulses are full and equal b/l. No palpable tenderness.
PSYCH: Normal and appropriate interaction.
Course
Orders/Labs/Results
Orders:
Orders
06/08/24 03:12
Complete Blood Count/With Diff Urgent
Comprehensive Metabolic Panel Urgent
Lactic Acid Urgent
Lipase Urgent
06/08/24 03:36
0.9% Sodium Chloride 1000 ml [Nss] 1,000 ml IV BOLUS
HYDROmorphone [Dilaudid] 0.5 mg IV NOW STA
Ondansetron Injectable [Zofran] 4 mg IV NOW STA
06/08/24 03:37
CT Abd/pelvis W Iv Cont Urgent
Comment:
Reason For Exam: severe L sided abd pain, hx crohn's
06/08/24 04:55
HYDROmorphone [Dilaudid] 0.5 mg .ROUTE .STK-MED ONE
06/08/24 04:57
HYDROmorphone [Dilaudid] 0.5 mg IV NOW STA
Abnormal Lab Results
06/08/24
03:12
WBC 14.5 H 10^3/uL
(4.8-10.8)
Abs Immat Gran (auto) 0.1 H 10^3/uL
(0-0.05)
Absolute Neuts (auto) 10.8 H 10^3/uL
(1.4-6.5)
Absolute Monos (auto) 1.0 H 10^3/uL
(0.1-0.6)
Immature Gran % 0.9 H %
(0-0.5)
Lymphocytes % 17.1 L %
(20.5-51.1)
BUN 21 H mg/dl
(9-20)
06/08/24 03:12
06/08/24 03:12
Vital Signs
Initial and Last Documented VS:
Initial Vital Signs
Temp Pulse Resp BP Pulse Ox
97.7 F 67 20 129/83 98
06/08/24 03:03 06/08/24 03:03 06/08/24 03:03 06/08/24 03:03 06/08/24 03:03
Last Documented Vital Signs
Temp Pulse Resp BP Pulse Ox
97.7 F 72 18 127/83 100
06/08/24 03:03 06/08/24 05:00 06/08/24 05:00 06/08/24 05:00 06/08/24 05:00
MDM/Problems Addressed
Differential Diagnosis Includes:
Concern for recurrent Crohn's flare, recurrent small bowel obstruction, other consideration is bowel perforation, infectious ileitis.
Will medicate for pain and nausea, initiate IV fluids. Labs are pending.
Will plan for CT abdomen and pelvis.
Chronic conditions affecting care: Immunosuppressed and Other (Crohn's)
*Radiology
Radiology exam reviewed: radiology read reviewed (CAT scan shows significant ileitis related to Crohn's with small bowel obstruction. Obstruction appears not as severe as previous scan 1 week ago. There is small amount of ascites, no free air.)
*Pulse Oximetry
Patient hypoxic: no
*Critical Care Note
Total Time (30-74mins, 75-104mins- exclusive of procedures): Not Applicable
Update Note
Update Note:
Labs show moderately elevated white blood cell count but this may be reflective of current steroids. He remains afebrile.
Chemistries are unremarkable.
Lactic acid is normal.
CAT scan shows segmental thickening of the terminal ileum and with mild adjacent inflammatory stranding and free fluid compatible with Crohn's ileitis with associated stricturing. The small bowel proximally is moderately dilated to 4.3 cm
consistent with small bowel obstruction. Overall not as severe as previous scan 1 week ago.
Will continue IV fluids, bowel rest, pain medication and will admit to hospitalist service.
ED Attending Note
-
Portions of this chart may have been created with voice recognition software.� Occasional wrong word or��sound alike� substitutions may have occurred due to the inherent limitations of voice recognition software.
Discharge Plan
Departure
Patient Disposition: Admit
Date of Disposition: 06/08/24
Time of Disposition: 05:08
Admit to doctor: Humberto
Presentation/result/management discussed w/ accepting MD/DO: Hospitalist
Condition: Fair
Discharge Problem:
Exacerbation of Crohn's disease of small intestine, SBO (small bowel obstruction)
Prescriptions:
No Action
Skyrizi 360 mg/2.4 mL (150 mg/mL) wearable injector
360 mg SC UD
Rx Instructions:
just compleated the 3 inital infusions, due to start injections on this week
prednisone 10 mg tablet
10 mg PO DAILY Qty: 74 0RF
Rx Instructions:
Take 40 mg(4tabs) daily for 7 days,30 mg(3tabs) daily for 7 days,20 mg(2tabs) daily for 7 days,10 mg daily for 7 days
Referrals:
Juan Jose Earl PA-C [Family Provider] -
Interventions
Interventions:
*Risk Screen - Suicide Last Done: 06/08/24 03:03
*General Assessment Last Done: 06/08/24 03:03
*Neglect/Abuse Screening Last Done: 06/08/24 03:03
ED- Fall Risk Assessment Last Done: 06/08/24 03:56
*ED COVID-19 Vaccine History Last Done: 06/08/24 03:03
BB-Zenahg-Tsmbirzyes Assessment Last Done: 06/08/24 03:56
Discharge Date and Time
Print Language: [place]
[2024-06-08] MEDS: ZOFRAN 4 MG IV (03:41)
[2024-06-08] MEDS: NSS 1000 IV (03:41)
[2024-06-08] MEDS: DILAUDID 0.5 MG IV ×2 (03:41→04:57)
[2024-06-08 03:43] LABS: ALT (SGPT) 18 U/L (0-50); AST (SGOT) 19 U/L (17-59); Albumin 4.4 g/dl (3.5-5.0); Alkaline Phosphatase 42 U/L (38-126); Blood Urea Nitrogen 21 mg/dl (9-20); Calcium 9.4 mg/dl (8.4-10.2); Carbon Dioxide 24 mmol/L (22-30); Chloride 104 mmol/L (98-107); Estimated Creatinine Clearance 100 ml/min; Glucose 97 mg/dl (70-99); Lipase 221 U/L (23-300); Potassium 3.9 mmol/L (3.5-5.1); Sodium 141 mmol/L (135-145); Total Bilirubin 0.9 mg/dl (0.2-1.3); eGFR > 60.00
--- NOTE | 2024-06-08 05:35 | HPS.HSE ---
Family Physician
-
Family Physician: Juan Jose Earl
Chief Complaint
-
Abd Pain
History of Present Illness
Patient is a 34y M with PMH significant for Crohn's disease who presents to ED complaining of LLQ abdominal pain. Patient was recently hospitalized here from 05/31 - 06/03 for similar symptoms. He was treated with IV steroids and transitioned
to PO prednisone on discharge. He was seen during his stay by GI and Colorectal Surgery. He states that he was feeling very well at the time of discharge.
He continued to feel well until early this AM when he woke with recurrent LLQ abdominal pain. Patient notes that he increased his diet somewhat over the past 24 hours - though he has continued to adhere to low residue recommendations. He complains
of some nausea but no emesis. Subjective chills.
He had a soft, non-bloody BM Saturday AM. No stools since that time. No flatus since waking this AM.
Medical History
Past Medical History
Past Medical History: Reports Other
Additional Past Medical History:
Crohn's Disease
Past Surgical History: Reports Other
Additional Past Surgical History:
Eye Surgery (5 yo)
Social History
Tobacco: Non-smoker
Alcohol: None
Drug: None
Family History
Family History: Not pertinent
Allergies / Home Medications
Allergies reflects when Allergies were last updated in [facility].
Home Medications with original date entered in [facility]
Allergy/Medication List:
Allergies
Allergy/AdvReac Type Severity Reaction Status Date / Time
No Known Allergies Allergy Verified 04/18/23 23:20
Home Medications
risankizumab-rzaa 360 mg/2.4 mL (150 mg/mL) subcut wearable injector (Skyrizi) 360 mg SC UD Crohns disease 06/01/24
prednisone 10 mg tablet 10 mg PO DAILY #74 tabs 06/03/24
Review of Systems
-
History Source: Patient
A 12 point ROS was completed and negative except as noted: Yes
Constitutional: Reports Chills; Denies Fever or Fatigue
Respiratory: Denies Cough or Trouble Breathing
Cardiac: Denies Chest Pain or Palpitations
Abdomen/GI: Reports Abdominal Pain and Nausea; Denies Vomiting, Diarrhea, Constipated, Bloody Stools or Black Stools
: Denies Dysuria, Frequency or Flank Pain
Musculoskeletal: Denies Joint Pain or Edema
Neurological: Denies Dizzy or Headache
Psych: Denies Depression or Anxiety
Physical Exam
Vital Signs
Vital Signs
Temp Pulse Resp BP Pulse Ox
97.7 F 72 18 127/83 100
06/08/24 03:03 06/08/24 05:00 06/08/24 05:00 06/08/24 05:00 06/08/24 05:00
Physical Exam
General: Other (34y M in no acute distress.)
HEENT: Moist mucous membranes and PERRLA
Respiratory: Clear; No Wheezes, Rales or Rhonchi
Cardiac: S1/S2 and Regular Rhythm; No Murmur
GI: Soft, Non Distended, Normal Bowel Sounds and Other (Mild LLQ tenderness without rebound or guarding.)
Musculoskeletal: No Clubbing, No Cyanosis and No Edema
Neuro: AO x 3
Laboratory Results
-
06/08/24 03:12
06/08/24 03:12
Laboratory Results
Lactic Acid 1.5 mmol/L (0.7-2.0) 06/08/24 03:12
Total Bilirubin 0.9 mg/dl (0.2-1.3) 06/08/24 03:12
AST 19 U/L (17-59) 06/08/24 03:12
ALT 18 U/L (0-50) 06/08/24 03:12
Alkaline Phosphatase 42 U/L (38-126) 06/08/24 03:12
Lipase 221 U/L (23-300) 06/08/24 03:12
Impression/Plan
-
A/P: Patient is a 34y M with PMH significant for Crohn's disease who presents to ED complaining of recurrent LLQ pain.
Terminal Ileitis / Crohn's Disease
SBO secondary to the above
- Admit for further evaluation and treatment.
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
- Will restart methylprednisolone 60mg daily for now.
- Supportive care with IVFs, pain control, antiemetics, etc.
- GI and Colorectal Surgery re-evaluations for additional recommendations.
- Follow for clinical improvement.
DVT Prophylaxis: SCDs
Code Status: Full
[2024-06-08] MEDS: SOLU-MEDROL PF 20 MG IV ×2 (05:47→14:20)
[2024-06-08] MEDS: TORADOL 15 MG IV ×2 (06:34→12:34)
[2024-06-08 07:48] LABS: Erythrocyte Sed Rate 7 mm/hour (0-20)
[2024-06-08] MEDS: NSS (PRESERVATIVE FREE) 10 ML IV (08:17)
[2024-06-08] MEDS: PROTONIX IV 40 MG IV (08:18)
[2024-06-08] MEDS: LR 1000 IV ×2 (08:19→18:04)
[2024-06-08 08:34] LABS: C-Reactive Protein < 5.00 mg/L (0.0-10.00)
--- NOTE | 2024-06-08 09:32 | CON.GI ---
Addendum entered and electronically signed by Omaira Crooks, DO 06/08/24 18:57:
i will decrease steroids for tomorrow and hold with none on Sat in preparation for OR on
discussed with Dr. Merlos and patient aware.
Addendum entered and electronically signed by Omaira Crooks, DO 06/08/24 15:56:
I spoke to patient and again. They are comfortable with Dr. Merlos and will stay here. No need for transfer.
Will add Ensure clear for nutrition
Addendum entered and electronically signed by Omaira Crooks, DO 06/08/24 14:41:
Patient seen and examined independently of MAKE UP WORKER. I agree with her note with my additions below
Dickson is my outpatient who is a 34-year-old male with history of small bowel Crohn's specifically terminal ileum who has had a known stricture in the terminal ileum with likely partial small bowel obstruction ongoing despite therapy. 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
a fibro stenotic stricture and less likely inflammatory. He is CRPs have been normal both this admission and last. He did not respond all that well to steroids. He was recently admitted from 05 31 through 06 03 with the same symptoms with fatigue
chills nausea and pain. Currently in last admission no nausea or vomiting. Repeat CT scan shows again partial obstructing terminal ileal stricture with mild improvement from prior. The pain woke him from sleep last night. He has lost 10 pounds
over the past few months. He recently started Skyrizi as an outpatient after MRE in the spring showed continued terminal ileal stricturing.
Unfortunately this is likely a fibrostenotic stricture and will not heal with therapy. Suggesting surgical resection. Patient and would prefer an [facility] and I have contacted an IBD surgeon at [place].
patient needs DVT proph - heparin/lovenox is OK
clears as tolerated, ensure clear as tolerated
AVOID ALL NSAIDs including ketorlac
I have contacted Dr. Surinder Hall at [place].
Original Note:
Consultation
-
Date/Time Consultation Requested: 06/08/24829
Date/Time Consultation Performed: 11/18/24 0930
Requesting Provider: Sudhir Paul DO
Performing Provider: DEMIAN Guerra, Omaira Crooks DO
Reason for Consultation: abdominal paiin hx crohns disease
Medical History
Chief Complaint / HPI
Chief Complaint: SBO
History of Present Illness:
Pt is a 34 -year-old male with past medical history of small bowel Crohn's disease diagnosed around [id number]. He initially started mesalamine then started on Humira in 2022, with transition to Skyrizi in February(at week 12 with first home dose
06/04) . He had recent admission 05/31- 06/03 with LLQ pain, fatigue , chills and nausea. On admission Ct with concern for partial SBO ans severe stricture and spasm in TI. Pt was placed on IV steroids with improvement with plan for Prednisone
40mg daily with weekly taper but still remained on 40mg daily on admission. He was feeling better but developed worsening LLQ abdominal pain 02/[address] with remonstration of partial obstructing terminal ileum stricturing in
keeping with history of Crohn's slightly improved from prior.
At this time patient admits to 8 out of 10 abdominal pain in the left lower quadrant on admission now 4 out of 10 he does admit to some nausea but denies vomiting, odynophagia, dysphagia, or rectal bleeding. Diarrhea has not been a major
issues more pain. He did have some formed and loose stool on Saturday. Prior baseline weight 150lb prior to disease process. 140 in July now 130 lbs. On admission labs with WBC 14,500
OBJECTIVE DATA:
---05/31/24 admission crohns flare- CT with ileal loops up to 4.1 cm SB feces sign, circumferential wall thickening and edema TI with concern for stricture or spasm CRP <5, ESR 7
--02/2024 -He continued to have intermittent symptoms of nausea and MRE demonstarting persistent disease in addition to elevated fecal calpro (nml Humira level, no abs) --> therapy changed to Skyrizi
--01/14/2024 fecal calpro 370
--12/2023 Humira drug level 14.3, no AB, calprotectin 370, neg quantiferon, immune to HAV,
--10/2023 normal CBC, CMP
-- 10/2023 MRE while in clinical remission for small bowel Crohn's on Humira every 2 weeks since 10/2022: Mild improvement but persistent wall thickening and enhancement of the distal ileum x 2. Improvement of the proximal dilation to the narrowing
areas. No fistula, inflammatory mass or abscess. Moderate constipation. Mild to moderate upper rectal wall enhancement with inflammatory proctitis
- - -09/2023 vitamin D 28, B12 390, folate 9.3, normal TSH, normal CBC, normal CMP, normal lipids
- - 07/2023 Colonoscopy for Crohn's disease of the small bowel on Humira every 2 weeks in clinical remission excellent prep to the terminal ileum. Difficult getting into the terminal ileum and unable to position to get biopsies but endoscopically it
was normal. Biopsies of the rectum, sigmoid, transverse, ascending and cecum were all normal tissue.
- - -05/18/23 CRP 0.5, stool calprotectin 116, hemoglobin 12.9, MCV 86, sed rate 2
NOVEMBER 2022 hospitalization and steroids
- - -12/09/22 CT Abd/Pelvis with IV and Oral contrast: Moderate terminal ileitis with luminal narrowing that may be secondary to inflammation or stricturing, and proximal to which there is a segment of dilated small bowel containing a large amount of
fecal material. Separate skip lesion in the ilium with wall thickening and luminal narrowing, proximal to which there is a moderate degree of fecal material. Findings are most compatible with an inflammatory ileitis in the setting of Crohn's
disease. Small bowel fecalization related to dysmotility, but no overt small bowel obstruction.
- - 10/2022 fecal calprotectin 783
- - 01/2020 colonoscopy for abdominal pain in the right lower quadrant. Good prep, endoscopically normal with nodularity of the ileocecal valve. The ileum was not intubated
- Biopsies of the ileocecal valve showed active ileitis with a nonnecrotizing granuloma in the right colon showed focal active colitis, no architectural distortion or dysplasia and rectal biopsies were normal
Past Medical History
Past Medical History: Other (crohn disease )
Past Surgical History: Other (eye surgery)
Social History
Tobacco: Non-Smoker
Alcohol: Occasional (rare )
Drug: None
Personal:
Living: With Family
Employment: Employed
Family History
Family History: Other (no family hx colon CA or polyps no family hx IBD)
Allergies / Home Medications
Allergy/AdvReac Type Severity Reaction Status Date / Time
No Known Allergies Allergy Verified 04/18/23 23:20
�Medication �Instructions �Recorded
risankizumab-rzaa 360 mg/2.4 mL 360 mg SC UD Crohns disease 06/01/24
(150 mg/mL) subcut wearable
injector (Skyrizi)
prednisone 10 mg tablet 10 mg PO DAILY #74 tabs 06/03/24
Review of Systems
-
History Source: Patient
Constitutional: Reports Weight Loss and Fatigue
EENT: Reports No Symptoms
Respiratory: Reports No Symptoms
Cardiac: Reports No Symptoms
Abdomen/GI: Reports Abdominal Pain, Nausea and Other (bloating at times )
: Reports No Symptoms
Musculoskeletal: Reports No Symptoms
Skin: Reports No Symptoms
Neurological: Reports No Symptoms
Endocrine: Reports No Symptoms
Hematologic/Lymphatic: Reports No Symptoms
Vital Signs
Temp Pulse Resp BP Pulse Ox
97.7 F 61 18 120/78 99
06/08/24 03:03 06/08/24 06:30 06/08/24 06:27 06/08/24 06:00 06/08/24 06:30
Physical Exam
Exam
General: Other (thin appearing)
HEENT: Normocephalic and Anicteric
Respiratory: Clear
Cardiac: Regular Rhythm
GI: Soft, Non Distended and Tender (left mid tenderness )
Musculoskeletal: No Clubbing and No Cyanosis
Skin: Warm and Dry
Neuro: Awake, Alert and AO x 3
Psych: Calm
Results
WBC 14.5 10^3/uL (4.8-10.8) H 06/08/24 03:12
Hgb 13.4 g/dL (13.0-18.0) 06/08/24 03:12
Hct 40.0 % (39.0-52.0) 06/08/24 03:12
MCV 84.7 fL (80.0-94.0) 06/08/24 03:12
Plt Count 332 10^3/uL (130-400) D 06/08/24 03:12
Absolute Neuts (auto) 10.8 10^3/uL (1.4-6.5) H 06/08/24 03:12
Sodium 141 mmol/L (135-145) 06/08/24 03:12
Potassium 3.9 mmol/L (3.5-5.1) 06/08/24 03:12
Chloride 104 mmol/L (98-107) 06/08/24 03:12
Carbon Dioxide 24 mmol/L (22-30) 06/08/24 03:12
BUN 21 mg/dl (9-20) H 06/08/24 03:12
Creatinine 0.9 mg/dL (0.7-1.3) 06/08/24 03:12
Calcium 9.4 mg/dl (8.4-10.2) 06/08/24 03:12
Total Bilirubin 0.9 mg/dl (0.2-1.3) 06/08/24 03:12
AST 19 U/L (17-59) 06/08/24 03:12
ALT 18 U/L (0-50) 06/08/24 03:12
Alkaline Phosphatase 42 U/L (38-126) 06/08/24 03:12
Lipase 221 U/L (23-300) 06/08/24 03:12
Diagnostic Image Results:
06/08 CT A/P with IV contrast
1. Redemonstration of partially obstructing terminal ileal stricturing in keeping with history of Crohn's disease, overall slightly improved from prior.
05/31 CT A/P w/ IV Contrast: There is fluid and air distention of small bowel loops in the left side of the abdomen. There are distal ileal loops distended up to 4.1 in diameter in the central inferior pelvis. There is an 'small bowel feces sign' in
a distended distal ileal loop proximal to a 2.8 cm segment of severe circumferential wall thickening and submucosal edema in the terminal ileum. The distal 3 cm of terminal ileum demonstrates wall thickening and luminal narrowing suggesting
stricture or spasm secondary to Crohn's disease. There is a small amount of pelvic ascites.
- - 10/2023 MRE while in clinical remission for small bowel Crohn's on Humira every 2 weeks since 10/2022: Mild improvement but persistent wall thickening and enhancement of the distal ileum x 2. Improvement of the proximal dilation to the narrowing
areas. No fistula, inflammatory mass or abscess. Moderate constipation. Mild to moderate upper rectal wall enhancement with inflammatory proctitis
Prior GI Procedures:
Colonoscopy: - - 07/2023 Colonoscopy for Crohn's disease of the small bowel on Humira every 2 weeks in clinical remission excellent prep to the terminal ileum. Difficult getting into the terminal ileum and unable to position to get biopsies but
endoscopically it was normal. Biopsies of the rectum, sigmoid, transverse, ascending and cecum were all normal tissue.
Assessment / Plan
-
Pt is a 34 -year-old male with past medical history of small bowel Crohn's disease diagnosed around [id number]. He initially started mesalamine then started on Humira in 2022, with transition to Skyrizi in February(at week 12 with first home dose
06/04) . He had recent admission 05/31- 06/03 with LLQ pain, fatigue , chills and nausea. On admission Ct with concern for partial SBO and severe stricture and spasm in TI. Pt was placed on IV steroids with improvement with plan for Prednisone
40mg daily with weekly taper but still remained on 40mg daily on admission. He was feeling better but developed worsening LLQ abdominal pain 02/[address] with remonstration of partial obstructing terminal ileum stricturing in
keeping with history of Crohn's slightly improved from prior.
-recurrent LLQ pain with partial obstruction on imaging
-crohn disease with concern for TI disease
- leukocytosis may be steroid related
-wt loss
PLAN:
Pt currently with some improved pain since admission
etiology of stricture related to inflammation vs fibrostenosis- CRP and ESR remains low
cont IV steroids
pt just completed OP dosing of Skyrizi 06/04 week [address] Crooks for continued OP therapy
ok for clear diet when tolerating add supplement with wt loss
cont compression stocking -- OOB for DVT prophylaxsis
for CR consult
pain control per hospitalist
limit narcotic as able with concern of obstructive process
steroid use only since early May discussed calcium and vitamin D use if prolonged use
family updated
-
-
Thank you for consultation and allowing me to participate in the patient's care. Please call the hotel supplies salesperson GI physician during the after hours with any questions or concerns.
[2024-06-08 09:45] LABS: Prealbumin (Transthyretin) 22.6 mg/dl (17.6-36.0)
--- NOTE | 2024-06-08 12:19 | CON.CRS ---
Consultation
-
Date/Time Consultation Requested: 06/08/2024, 07:27
Date/Time Consultation Performed: 06/08/2024, 09:45
Requesting Provider: Sudhir Paul DO
Performing Provider: Laurent Merlos MD
Reason for Consultation: SBO due to possible Crohn's flare
Medical History
-
Chief Complaint: abdominal pain
History of Present Illness:
34-year-old male , with a past medical history of Crohn's disease and recent hospitalization, presents to [facility] ER complaining of nausea and left lower quadrant pain. The patient was first diagnosed with Crohn's disease in October 2022
and had been hospitalized with a small bowel obstruction due to terminal ileum inflammation of November 2022. He was treated nonoperatively with steroids at that time and was started on Humira but then switched to Skyrizi. His last colonoscopy was in
July [address] Crooks which showed no active inflammation in the entire colon was normal. He had presented to [facility] on 05/31/2024 complaining of periumbilical pain similar to the prior Crohn's flare. He was treated with steroids
and discharged on 06/03/2024. He received his first injection of Skyrizi on 06/04/2024. At home he was on a low fiber diet but yesterday ate more food than he had which included a rice and banana, and then he developed nausea. He denies vomiting.
Since admission early this morning he has not had any flatus. His last bowel movement was 2 days ago. He still is urinating but states the last time he urinated was more difficult to start. On admission to the ER his WBC was 14.5. He has
remained afebrile and his vital signs have been normal. CT of the abdomen and pelvis shows redemonstration of a partially obstructing terminal ileum stricture in keeping with history of Crohn's disease, overall slightly improved from prior. We
have been consulted for further surgical opinion.
Past Medical History
Past Medical History: Other (Crohn's)
Past Surgical History: Other (eye surgery)
Social History
Tobacco: Non-Smoker
Alcohol: None
Drug: None
Family History
Family History: Other (uncle with a history of colon polyps)
Allergies / Home Medications
Allergy/AdvReac Type Severity Reaction Status Date / Time
No Known Allergies Allergy Verified 04/18/23 23:20
�Medication �Instructions �Recorded �Confirmed �Type
risankizumab-rzaa 360 mg/2.4 mL 360 mg SC UD Crohns disease 06/01/24 06/08/24 History
(150 mg/mL) subcut wearable
injector (Skyrizi)
prednisone 10 mg tablet 10 mg PO DAILY #74 tabs 06/03/24 06/08/24 Rx
Review of Systems
-
History Source: Patient
Abdomen/GI: Abdominal Pain and Nausea
: Difficulty Voiding
A 10 point review of systems was completed, and was negative except as per HPI.
Physical Exam
Vital Signs
Temp 98.7 F 06/08/24 07:40
Pulse 65 06/08/24 07:40
Resp Rate 18 06/08/24 07:40
Blood pressure 108/64 06/08/24 07:40
SaO2 99 06/08/24 07:40
06/07/24 06/08/24 06/09/24
06:59 06:59 06:59
Actual Weight 61 kg 59.676 kg
Body Mass Index (BMI) 18.4
Lab Results / Allergies
06/08/24 03:12
06/08/24 03:12
WBC 14.5 10^3/uL (4.8-10.8) H 06/08/24 03:12
Hgb 13.4 g/dL (13.0-18.0) 06/08/24 03:12
Hct 40.0 % (39.0-52.0) 06/08/24 03:12
Plt Count 332 10^3/uL (130-400) D 06/08/24 03:12
Abs Immat Gran (auto) 0.1 10^3/uL (0-0.05) H 06/08/24 03:12
Neutrophils % 74.3 % (42.2-75.2) 06/08/24 03:12
Allergy/AdvReac Type Severity Reaction Status Date / Time
No Known Allergies Allergy Verified 04/18/23 23:20
Physical Exam
General: Well Developed, Well Nourished and No Apparent Distress
GI: Soft, Non Tender (mild) and Tender (mild suprapubic pain)
Skin: Warm and Dry
Neuro: AO x 3
Psych: Calm
Data Reviewed
-
CT Scan: Image Personally Visualized and interpreted, Report Reviewed by me and Discussed with Patient
Labs: Labs Reviewed by me, Discussed with Physician and Discussed with Patient
Old Records: Reviewed
Assessment / Plan
-
Assessment:
34-year-old male with a history of Crohn's disease diagnosed in October 2022 subsequently hospitalized with small bowel obstruction in November 2022 and treated nonoperative steroids and recently completed Skyrizi and hospitalization from 05/31/2024 to
06/03/2024, presents to the ER complaining of left lower quadrant pain and nausea, CT showing partially obstructing terminal ileum stricturing keeping with history of Crohn's
Plan:
-No plans for urgent surgery, however if patient does not improve he has been tentatively scheduled for this coming June [address] Merlos
-Will have wound RN for bilateral stoma marking
-Prealbumin ordered
-N.p.o.
-Appreciate GI
-Continue methylprednisone 20 mg every 8 hours IV
[2024-06-08] MEDS: ATIVAN 0.5 MG PO ×2 (12:33→17:31)
--- NOTE | 2024-06-08 16:00 | WOUNDNOTE ---
LEYLA RN NOTE: Stoma sited all quadrants as requested, for surgery . Avoided creases and scars. Assessed lying, sitting and standing. LUQ marked 5.5cm from midline and 5cm proximal from umbilical line. LLQ marked 5cm from midline and 0 cm from
umbilical line. RUQ marked 6cm from midline and 5cm proximal from umbilical line. RLQ marked 5cm from midline and 1cm distal from umbilical line. Answered all questions and will follow for ostomy teaching if needed.
[2024-06-08] MEDS: TYLENOL 650 MG PO (19:51)
[2024-06-08] MEDS: SOLU-MEDROL PF 10 MG IV (22:30)
[2024-06-09] MEDS: LR 1000 IV ×2 (05:37→15:08)
[2024-06-09] MEDS: SOLU-MEDROL PF 10 MG IV ×2 (05:37→15:05)
[2024-06-09] MEDS: PROTONIX IV 40 MG IV (07:52)
[2024-06-09] MEDS: NSS (PRESERVATIVE FREE) 10 ML IV (07:52)
[2024-06-09 08:06] VITALS: BP 121/66
[2024-06-09 08:24] LABS: Hemoglobin 13.1 g/dL (13.0-18.0); Mean Corp Hgb Conc. 32.8 g/dL (33.0-37.0); Mean Corpuscular Hgb 28.4 pg (27.0-31.0); Mean Corpuscular Volume 86.6 fL (80.0-94.0); Mean Platelet Volume 10.7 fL (7.4-10.4); Platelet Count 326 10^3/uL (130-400); Red Blood Cell Count 4.62 10^6/uL (4.70-6.10); Red Cell Dist. Width 12.9 % (11.5-14.5); White Blood Cell Count 14.9 10^3/uL (4.8-10.8)
[2024-06-09 08:52] LABS: Blood Urea Nitrogen 17 mg/dl (9-20); Calcium 9.5 mg/dl (8.4-10.2); Carbon Dioxide 28 mmol/L (22-30); Chloride 99 mmol/L (98-107); Estimated Creatinine Clearance 98 ml/min; Glucose 111 mg/dl (70-99); Potassium 4.2 mmol/L (3.5-5.1); Sodium 142 mmol/L (135-145); eGFR > 60.00
--- NOTE | 2024-06-09 11:22 | W.PN.CRS1 ---
Today's Communication / Plan
-
Plan for OR 06/11
Keep on clears
Assessment/Plan
-
Assessment:
34-year-old male with a history of Crohn's disease diagnosed in October 2022 subsequently hospitalized with small bowel obstruction in November 2022 and treated nonoperative steroids and recently completed Skyrizi and hospitalization from 05/31/2024 to
06/03/2024, presents to the ER complaining of left lower quadrant pain and nausea, CT showing partially obstructing terminal ileum stricturing keeping with history of Crohn's
Plan:
-No plans for urgent surgery, however if patient does not improve he has been tentatively scheduled for this coming June [address] Merlos
-Will have wound RN for bilateral stoma marking
-Prealbumin ordered
-Continue on clears
-Appreciate GI
-Continue methylprednisone 20 mg every 8 hours IV
-Type and screen ordered
Subjective Data
Subjective Data
Date of Service: June 09, 2024
Patient states he feels 'okay'. He is tolerating clears. He has no nausea or vomiting. His pain is improved since overnight. He now has gas.
Objective Data
-
Vital Signs
Temp Pulse Resp BP Pulse Ox
98.3 F 65 18 121/66 99
06/09/24 08:06 06/09/24 08:06 06/09/24 08:06 06/09/24 08:06 06/09/24 08:06
Intake & Output
06/08/24 06/09/24 06/10/24
06:59 06:59 06:59
Intake Total 960 / 960
Balance 960 / 960
Intake:
Oral fluids 960 / 960
Other:
Number of approximated MODERATE 2
amounts of urine
Lab Results
06/09/24 07:45
06/09/24 07:45
Physical Exam
-
General: No Acute Distress and AOx3
Abdomen: Soft, Non Distended and Tender (Left lower quadrant, mild)
Skin: Warm and Dry
--- NOTE | 2024-06-09 13:37 | W.PN.HOSP.TC ---
Today's Communication/Plan
-
Assessment / Plan
Assessment / Plan
Small bowel obstruction secondary to likely fibrostenotic disease in the setting of Crohn's
-Colorectal surgery following
-Taper steroids, optimized for perioperative complication risk
-Preoperative ostomy marking
-Plan for surgical resection of fibrostenotic area
-Tolerating clears well
Leukocytosis in likely setting of steroid use
-Without evidence of fever
-Monitor off of antibiotics
-If develops fever then can consider starting antibiotics and checking blood cultures
Anticipated Discharge: > 48 hours
Subjective/Interval History
-
Date of Service: June 09, 2024
Seen and examined. No new complaints. No acute overnight events
Per GI attending initially wanted to be transferred to tertiary center however he is now unable to he is staying at [facility] for further treatment and surgical evaluate
Objective Data
-
Labs:
Laboratory Results
06/09/24
07:45
WBC 14.9 H
Hgb 13.1
Hct 40.0
Plt Count 326
Sodium 142
Potassium 4.2
Chloride 99
Carbon Dioxide 28
BUN 17
Creatinine 0.9
Glucose 111 H
Calcium 9.5
Vital Signs:
Vital Signs
Temp Pulse Resp BP Pulse Ox
98.3 F 65 18 121/66 99
06/09/24 08:06 06/09/24 08:06 06/09/24 08:06 06/09/24 08:06 06/09/24 08:06
I&O
06/08/24 06/09/24 06/10/24
06:59 06:59 06:59
Intake Total 960 / 960
Balance 960 / 960
[2024-06-09 13:46] VITALS: BMI 18.4
--- NOTE | 2024-06-09 14:39 | W.PN.GI.CBS2 ---
Today's Communication / Plan
-
Will stop IV steroid after tonight dose
Continue follow-up colorectal recommendation
Assessment / Plan
-
Pt is a 34 -year-old male with past medical history of small bowel Crohn's disease diagnosed around 5074-4646. He initially started mesalamine then started on Humira in 2022, with transition to Skyrizi in February(at week 12 with first home dose
06/04) . He had recent admission 05/31- 06/03 with LLQ pain, fatigue , chills and nausea. On admission Ct with concern for partial SBO and severe stricture and spasm in TI. Pt was placed on IV steroids with improvement with plan for Prednisone
40mg daily with weekly taper but still remained on 40mg daily on admission. He was feeling better but developed worsening LLQ abdominal pain 02/[address] with remonstration of partial obstructing terminal ileum stricturing in
keeping with history of Crohn's slightly improved from prior.
-recurrent LLQ pain with partial obstruction on imaging -likely fibrostenotic stricture secondary to Crohn's disease
PLAN:
Patient is tentatively scheduled for 06/[address] Merlos
As per Dr. Crooks will stop IV steroid tonight prepping for surgery tomorrow
Continue follow-up with colorectal recommendation
patient requires outpatient follow-up with Dr. Crooks on discharge to resume maintenance therapy in the future
Total Time Spent with Patient (in minutes): 35
Subjective
Subjective
Date of Service: June 09, 2024
Abdominal pain is better. Passing gas. Tolerating clears. Awaiting surgery tentatively scheduled 06/11
Objective
Data Reviewed
Laboratory Data:
Laboratory Results
06/09/24 07:45
06/09/24 07:45
Laboratory Results
Total Bilirubin 0.9 mg/dl (0.2-1.3) 06/08/24 03:12
AST 19 U/L (17-59) 06/08/24 03:12
ALT 18 U/L (0-50) 06/08/24 03:12
Alkaline Phosphatase 42 U/L (38-126) 06/08/24 03:12
Lipase 221 U/L (23-300) 06/08/24 03:12
Vital Signs and I&O:
Vital Signs
Temp Pulse Resp BP Pulse Ox
98.3 F 65 18 121/66 99
06/09/24 08:06 06/09/24 08:06 06/09/24 08:06 06/09/24 08:06 06/09/24 08:06
I&O
06/08/24 06/09/24 06/10/24
06:59 06:59 06:59
Intake Total 960 / 960
Balance 960 / 960
Physical Exam
Physical Exam
GI: Soft, Non Distended and Tender
--- NOTE | 2024-06-09 14:59 | CM ---
CM met with pt at bedside to complete IA.
Dickson lives with his in a 1 story home with 4 steps to enter.
He has been (I) amb and adls; employed FT and drives.
No hx of SNF or VN.
Dickson was just discharged on 06/03/2024 after brief hospitalization for chrons flair/SBO. Readmission with similar presentation; tentative surgery on 06/11/2024.
Plan - anticipate home no needs when medically stable
PCP - Juan Jose Earl
Pharm - [facility]
[2024-06-09 15:45] VITALS: BP 125/70
[2024-06-09] MEDS: ATIVAN 0.5 MG PO (17:13)
[2024-06-09 23:22] VITALS: BP 112/68
[2024-06-10 07:30] VITALS: BP 127/73
[2024-06-10] MEDS: PROTONIX IV 40 MG IV (07:51)
[2024-06-10] MEDS: NSS (PRESERVATIVE FREE) 10 ML IV (07:51)
[2024-06-10] MEDS: ATIVAN 0.5 MG PO (09:08)
--- NOTE | 2024-06-10 11:31 | PTCARENOTE ---
pt with the family, requested to wait for prep.
[2024-06-10] MEDS: CITROMA 300 ML PO ×2 (11:54→18:06)
--- NOTE | 2024-06-10 13:39 | W.PN.HOSP.TC ---
Today's Communication/Plan
-
Assessment / Plan
Assessment / Plan
Physical Exam
NAD, resting comfortably in bed
Scleral anicteric
Moist mucous membranes
No JVD
CTA bilateral
Normal S1-S2 no murmurs
Soft nontender nondistended bowel sounds active
No peripheral pitting edema
Moves extremities spontaneously
AAOx3
Assessment and plan
Small bowel obstruction secondary to likely fibrostenotic disease in the setting of Crohn's
-Colorectal surgery following
-Taper steroids, optimized for perioperative complication risk
-Preoperative ostomy marking
-Plan for surgical resection of fibrostenotic area
-Tolerating clears well
-N.p.o. after midnight
Leukocytosis in likely setting of steroid use
-Without evidence of fever
-Monitor off of antibiotics
-If develops fever then can consider starting antibiotics and checking blood cultures
Anticipated Discharge: > 48 hours
Subjective/Interval History
-
Date of Service: June 10, 2024
Seen and examined. No new complaints. No acute overnight events. Sitting in bedside chair comfortable previously was able to ambulate the halls multiple times without any type pain or discomfort.
Objective Data
-
Vital Signs:
Vital Signs
Temp Pulse Resp BP Pulse Ox
98.1 F 75 18 127/73 99
06/10/24 07:30 06/10/24 07:30 06/10/24 07:30 06/10/24 07:30 06/10/24 10:24
I&O
06/09/24 06/10/24 06/11/24
06:59 06:59 06:59
Intake Total 960 / 960
Balance 960 / 960
[2024-06-10] MEDS: FLAGYL 1000 MG PO ×3 (14:07→23:58)
[2024-06-10] MEDS: NEOMYCIN 1000 MG PO ×3 (14:07→23:58)
[2024-06-10 15:15] VITALS: BP 111/71
--- NOTE | 2024-06-10 17:17 | PTCARENOTE ---
pt transferred to Rm 2111. Report given to MARÍA Solis. pt's belongings sent with the pt.
--- NOTE | 2024-06-10 18:12 | PTCARENOTE ---
Patient transferred to [address] [place] [address] for surgery tomorrow.Patient with a history of Chrons Disease and frequent small bowel obstructions.He will have surgery for a colostomy tomorrow.Patient is alert and oriented x3 and denies any pain.Surgery is
scheduled for 1300 tomorrow and he is currently working on his prep.
--- NOTE | 2024-06-10 22:57 | W.PN.CRS1 ---
Today's Communication / Plan
-
as below
Assessment/Plan
-
33-year-old male with PMH of Crohn's (first diagnosed October 2022, hospitalized with SBO due to TI inflammation November 2022, treated nonoperatively with steroids; was initially treated with Humira, but switched to Skyrizi in February; last colonoscopy
July [address] Crooks, showing pseudopolyps in the cecum, otherwise normal mucosal appearance endoscopically, random biopsies negative for inflammation; TI appeared normal endoscopically, unable to take biopsies) who was recently hospitalized
from 06/01 to 06/03 for a partial SBO due to a recurrent terminal ileal stricture, treated with steroids and discharged on a low residue diet, who re-presents with 1 days of recurrent abdominal pain in the LLQ, described as similar to his recent
attack; in the ED, WBC 14.5, Hb 13.4, CR 0.9, CRP less than 5, albumin 4.4, prealbumin 22, CT showing redemonstration of the partially obstructing terminal ileal stricture (personally reviewed and interpreted; bowel proximal to stricture is more
dilated with fecalization, concerning for worsening stricture)
AFVSS
No labs today
�Crohn's flare associated with partial small bowel obstruction
�Stricture in same location as MRE in 2022; CRP is not elevated, consistent with fibrostenotic stricture
-D/w GI, plan for OR tomorrow for robotic ileocolic resection; weaned off steroids yesterday
�S/p ostomy marking
� Continue clears with bowel prep today; NPO past midnight
� Agree with Ensure clears
� Pain control with Tylenol/Toradol; would minimize narcotic use in setting of Crohn's (high risk of opioid tolerance long-term)
�Cont DVT PPx with Lovenox (high risk for DVT in IBD)
� Appreciate hospitalist
Subjective Data
Subjective Data
Date of Service: June 10, 2024, 5:30pm
No acute issues. Denies N/V. Abdominal pain resolved. Tolerating bowel prep so far.
Objective Data
-
Vital Signs
Temp Pulse Resp BP Pulse Ox
98.6 F 61 18 111/71 100
06/10/24 15:15 06/10/24 15:15 06/10/24 15:15 06/10/24 15:15 06/10/24 15:15
Intake & Output
06/09/24 06/10/24 06/11/24
06:59 06:59 06:59
Intake Total 960 / 960
Balance 960 / 960
Intake:
Oral fluids 960 / 960
Other:
Number of approximated MODERATE 2 1 6
amounts of urine
Lab Results
06/09/24 07:45
06/09/24 07:45
Physical Exam
-
General: No Acute Distress and AOx3
HEENT: Grossly Normal
Abdomen: Soft, Non Distended, Non Tender, No Guarding and No Rebound
Skin: Warm and Dry
[2024-06-10 23:47] VITALS: BP 113/76
[2024-06-10] MEDS: NSS 1000 IV (23:51)
[2024-06-11] VITALS (12 sets, daily range): BP systolic 110–128; BP diastolic 64–88
--- NOTE | 2024-06-11 06:14 | PTCARENOTE ---
First set of CHG wipes complete. Linens and gown changed.
[2024-06-11 06:35] LABS: INR 1.02
[2024-06-11 06:36] LABS: % Basophils 0.3 % (0-2); % Eosinophils 2.4 % (0-6); % Immature Granulocytes 0.9 % (0-0.5); % Lymphocytes 35.4 % (20.5-51.1); % Monocytes 10.5 % (1.7-9.3); % Neutrophils 50.5 % (42.2-75.2); APTT 28.9 Sec (23.4-35.0); Absolute Eosinophils 0.2 10^3/uL (0-0.7); Absolute Immature Granulocytes 0.1 10^3/uL (0-0.05); Absolute Lymphocytes 2.6 10^3/uL (1.2-3.4); Absolute Monocytes 0.8 10^3/uL (0.1-0.6); Absolute Neutrophils 3.8 10^3/uL (1.4-6.5); Hematocrit 39.6 % (39.0-52.0); Hemoglobin 12.6 g/dL (13.0-18.0); Mean Corp Hgb Conc. 31.8 g/dL (33.0-37.0); Mean Corpuscular Hgb 28.4 pg (27.0-31.0); Mean Corpuscular Volume 89.4 fL (80.0-94.0); Mean Platelet Volume 10.5 fL (7.4-10.4); Nucleated Red Blood Cells % 0 % (-); Platelet Count 286 10^3/uL (130-400); Red Blood Cell Count 4.43 10^6/uL (4.70-6.10); White Blood Cell Count 7.5 10^3/uL (4.8-10.8)
[2024-06-11 06:58] LABS: Blood Urea Nitrogen 14 mg/dl (9-20); Calcium 9.1 mg/dl (8.4-10.2); Carbon Dioxide 24 mmol/L (22-30); Chloride 105 mmol/L (98-107); Estimated Creatinine Clearance 88 ml/min; Glucose 78 mg/dl (70-99); Potassium 4.5 mmol/L (3.5-5.1); Sodium 140 mmol/L (135-145); eGFR > 60.00
[2024-06-11] MEDS: NSS (PRESERVATIVE FREE) 10 ML IV (07:53)
[2024-06-11] MEDS: PROTONIX IV 40 MG IV (07:54)
--- NOTE | 2024-06-11 08:22 | W.PN.CRS1 ---
Today's Communication / Plan
-
as below
Assessment/Plan
-
33-year-old male with PMH of Crohn's (first diagnosed October 2022, hospitalized with SBO due to TI inflammation November 2022, treated nonoperatively with steroids; was initially treated with Humira, but switched to Skyrizi in February; last colonoscopy
July [address] Crooks, showing pseudopolyps in the cecum, otherwise normal mucosal appearance endoscopically, random biopsies negative for inflammation; TI appeared normal endoscopically, unable to take biopsies) who was recently hospitalized
from 06/01 to 06/03 for a partial SBO due to a recurrent terminal ileal stricture, treated with steroids and discharged on a low residue diet, who re-presents with 1 days of recurrent abdominal pain in the LLQ, described as similar to his recent
attack; in the ED, WBC 14.5, Hb 13.4, CR 0.9, CRP less than 5, albumin 4.4, prealbumin 22, CT showing redemonstration of the partially obstructing terminal ileal stricture (personally reviewed and interpreted; bowel proximal to stricture is more
dilated with fecalization, concerning for worsening stricture)
AFVSS
WBC 7.5 from 14.9, Hb 12.6 from 13.1, CR 1.0, PTT 28.9, INR 1.02
�Crohn's flare associated with partial small bowel obstruction
�Stricture in same location as MRE in 2022; CRP is not elevated, consistent with fibrostenotic stricture
-D/w GI, plan for OR this afternoon for robotic ileocolic resection; off steroids
�S/p ostomy marking
� Cont NPO with IVF
� Pain control with Tylenol/Toradol; would minimize narcotic use in setting of Crohn's (high risk of opioid tolerance long-term)
�Cont DVT PPx with Lovenox (high risk for DVT in IBD)
� Appreciate hospitalist
Subjective Data
Subjective Data
Date of Service: June 11, 2024
No overnight events. Tolerated prep and stool coming out liquid yellow.
Denies any N/V. Denies abdominal pain.
He has been OOB.
Objective Data
-
Vital Signs
Temp Pulse Resp BP Pulse Ox
97.8 F 70 18 113/76 98
06/10/24 23:47 06/10/24 23:47 06/10/24 23:47 06/10/24 23:47 06/10/24 23:47
Intake & Output
06/10/24 06/11/24 06/12/24
06:59 06:59 06:59
Intake Total 1005 / 1005
Output Total 480 / 480
Balance 525 / 525
Intake:
Oral fluids 480 / 480
IV fluids (Total) 525 / 525
Output:
Urine, Voided 480 / 480
Other:
Number of approximated MODERATE 1 9
amounts of urine
Lab Results
06/11/24 05:01
06/11/24 05:01
Physical Exam
-
General: No Acute Distress and AOx3
HEENT: Grossly Normal
Abdomen: Soft, Non Distended, Non Tender, No Guarding and No Rebound
Skin: Warm and Dry
--- NOTE | 2024-06-11 09:03 | PN.CDI ---
CDI
- -
CDI:
Physician Documentation Request
Admit Date: 06/08/24 05:44
Dear Doctor Nabil,
Clinical Indicators:
Patient admitted with SBO in setting of Crohn's disease.
Height: 5 ft 11 in
Weight: 131 lbs 9 oz
BMI: 18.4
06/09 note/assessment: 'BMI 18.3 underweight range'
If possible, please provide an associated diagnosis related to the abnormal BMI (< or = to 19), such as:
Underweight
Cachectic
BMI is not significant
Other, please specify
Use of terms such as suspected, likely, concern for, or probable (associated with a specific diagnosis that is being evaluated, monitored, or treated as if it exists) are acceptable and can be coded in the inpatient setting, when documented at the
time of discharge.
Thank you,
Chelsea Zepeda RN BSN
CDI Specialist
available via tiger text
Please use your independent medical judgment in providing your response.
--- NOTE | 2024-06-11 12:47 | W.PN.HOSP.TC ---
Today's Communication/Plan
-
For the OR today with colorectal surgery
Assessment / Plan
Assessment / Plan
Physical Exam
NAD, resting comfortably in bed
Scleral anicteric
Moist mucous membranes
No JVD
CTA bilateral
Normal S1-S2 no murmurs
Soft nontender nondistended bowel sounds active
No peripheral pitting edema
Moves extremities spontaneously
AAOx3
Assessment and plan
Small bowel obstruction secondary to likely fibrostenotic disease in the setting of Crohn's
-Colorectal surgery following
-Taper steroids, optimized for perioperative complication risk
-Preoperative ostomy marking
-Plan for surgical resection of fibrostenotic area
-N.p.o. today until surgery
-We have reviewed postoperative incentive spirometry use
Leukocytosis in likely setting of steroid use
-Without evidence of fever
-Monitor off of antibiotics
-If develops fever then can consider starting antibiotics and checking blood cultures
Anticipated Discharge: 24 - 48 hours
Subjective/Interval History
-
Date of Service: June 11, 2024
Seen and examined. No new complaints. No acute overnight events.
Objective Data
-
Labs:
Laboratory Results
06/11/24
05:01
WBC 7.5
Hgb 12.6 L
Hct 39.6
Plt Count 286
PT 14.0
INR 1.02
APTT 28.9
Sodium 140
Potassium 4.5
Chloride 105
Carbon Dioxide 24
BUN 14
Creatinine 1.0
Glucose 78
Calcium 9.1
Vital Signs:
Vital Signs
Temp Pulse Resp BP Pulse Ox
97.5 F 66 18 112/71 98
06/11/24 07:00 06/11/24 07:00 06/11/24 07:00 06/11/24 07:00 06/11/24 07:00
I&O
06/10/24 06/11/24 06/12/24
06:59 06:59 06:59
Intake Total 1005 / 1005
Output Total 480 / 480
Balance 525 / 525
[2024-06-11] MEDS: NEURONTIN 600 MG PO (14:15)
[2024-06-11] MEDS: ENTEREG 12 MG PO (14:15)
[2024-06-11] MEDS: HEPARIN 5000 UNITS SC (14:16)
[2024-06-11] MEDS: TYLENOL 1000 MG PO ×2 (14:16→23:29)
[2024-06-11] MEDS: NSS 1000 IV (14:24)
--- NOTE | 2024-06-11 14:27 | PTCARENOTE ---
completed preop checklist, 2 sets of CHG wipes and linen change. all preop meds admin. report given to OR nurse. patient was transported via bed, preop ABT sent to preop area.
--- NOTE | 2024-06-11 15:19 | CM ---
Chart reviewed
NPO
Planned for OR today with colorectal surgery
CM will follow for d/c needs
Plan - TBD post-op
--- NOTE | 2024-06-11 19:12 | W.IMMPOSTOP ---
Surgical Immed Post Op Note
-
Primary Surgeon: Laurent Merlos MD
Assisting Surgeon: INDERJIT Flores
Pre-op Diagnosis: Crohn's disease with terminal ileal stricture
Post-op Diagnosis: Crohn's disease with terminal ileal stricture
Procedure Performed: Robotic ileocolic resection, laparoscopic TAP block
Anesthesia Type: General
Specimen / Cultures: Ileocecum
Estimated Blood Loss: 50 mL
IVF: 1.1 L
UOP: 200 mL
Complications: None
Operative Findings: Identified significant stricture within 5 cm of the ileocecal valve and an additional mild stricture within 10 cm of the ileocecal valve; laparoscopically ran the bowel from the ligament of Treves to the ligament of Treitz and no
other stricture or diseased segment was identified; no significant creeping fat; transected on the ileum at 20 cm from the ileocecal valve and at the proximal ascending colon; performed an intracorporeal isoperistaltic [id number] anastomosis
--- NOTE | 2024-06-11 19:23 | OR.RPT ---
Operative Report
Operative Report
DATE OF OPERATION: 06/11/2024
SURGEON: Laurent Merlos MD
PREOPERATIVE DIAGNOSIS: Crohn's disease with terminal ileal stricture
POSTOPERATIVE DIAGNOSIS: Crohn's disease with terminal ileal stricture x 2
OPERATION: Robotic ileocolic resection, laparoscopic TAP block
ASSISTANTS:
1. INDERJIT Flores
ANESTHESIA: General
ESTIMATED BLOOD LOSS: 50 mL
UOP: 200 mL
IVF: 1150 mL
FINDINGS:
1. Redundant ascending colon with cecum and terminal ileum within the pelvis; identified 2 short segment strictures associated with creeping fat within 15 cm of the ileocecal valve; remainder of bowel without evidence of disease
2. Resected about 15 cm of terminal ileum with about 7-8 cm of cecum and ascending colon; performed intracorporeal isoperistaltic [id number] stapled anastomosis
SPECIMENS:
1. Ileocecum
DRAINS: None
COMPLICATIONS: No immediate complications.
INDICATIONS: The patient is a 34-year-old male with PMH of Crohn's disease who was discovered to have a terminal ileal stricture in November 2022. He was initially treated with steroids and started on Humira. In October 2023, an MRE showed persistent
stricture and was therefore transition to [facility]. He then presented to [facility] ED with worsening abdominal pain on June 01 and was found to have persistent stricture in the terminal ileum causing a partial SBO. He was treated again with
steroids and discharged 2 days later. However, he re-presented with worsening pain despite the high-dose steroids. His CRPs had remained low, consistent with a fibrostenotic stricture. Therefore, I recommended resecting the area surgically. He
was quickly weaned off steroids since he was taking them for less than 2 weeks. The operation was discussed with the patient in detail, including the risks, benefits and alternatives. Risks described included, but not limited to, bleeding,
infection, anastomotic leak, damage to nearby structures (i.e.- bowel, bladder, solid organ injury, ureter), need for ostomy creation, conversion to open, recurrence and anesthetic risks. The patient understood and agreed to proceed. This was also
discussed with his spouse, Antoinette, who agreed to surgery.
PROCEDURE IN DETAIL: The patient was marked for possible ostomy sites preoperatively by the ostomy team. The patient was taken to the operating room and placed on the operating table in supine position. Sequential compression devices were placed
bilaterally. General anesthesia was then induced and the patient was intubated without complication. Bilateral arms were tucked. Cardoza catheter was placed with sterile technique. Preoperative antibiotics were given. The abdomen was shaved,
prepped and draped in a sterile fashion. A marking pen was used to arielle out the midline. A time-out was then performed verifying the correct patient, procedure, operative site, positioning, and special equipment.
At Little's point, using an 11 blade scalpel, an 8 mm incision was made. A Veress needle was used to obtain abdominal access. After 3 clicks, insufflation was initiated and the opening pressure was noted to be less than 8 mmHg. The abdomen was
insufflated to a pressure of 12, which the patient tolerated well. The 8 mm robotic trocar was then introduced and the robotic endoscope advanced. No injury from initial Veress placement or port placement was noted. The abdomen was explored.
There was a single omental band to the anterior abdominal wall. Otherwise no other adhesions were noted.
In a diagonal fashion from the planned Pfannenstiel incision to the Little's point incision, 3 more robotic trocars were placed under direct visualization taking care to avoid injury to the epigastric vessels. An assist port was placed in the left
lateral abdomen under direct visualization as well. Using atraumatic graspers, the omentum was brushed cephalad to expose and confirm the tattoo in the hepatic flexure. Then, the patient was placed in [id number] with slight Trendelenburg.
Using atraumatic graspers, the abdomen was explored. The cecum and terminal ileum were located within the pelvis. These were retracted out of the pelvis and were assessed. The ascending colon was quite redundant and appeared healthy. The cecum
also appeared healthy without evidence of inflammation. Within about 6 cm from the ileocecal valve, there was a clear stricture with creeping fat, about 2 to 3 cm in length. Within about 10 cm from the ileocecal valve, another more mild stricture
was noted, again associated with creeping fat and about 2 to 3 cm in length. The remainder of the bowel was run laparoscopically to the ligament of Treitz. The mesentery was noted to be slightly foreshortened, but there was no other evidence of
disease, nor any other creeping fat noted. The robot was docked from the patient's right side. From the suprapubic port to Little's point, the instruments introduced were the bipolar grasper, camera, scissors and tip up grasper.
To begin, I took down the single omental band to the abdominal wall with electrocautery. I grasped and elevated the cecum. I swept the small bowel towards the left lower quadrant. I mobilized to the terminal ileum and cecum from a lateral to
medial fashion. The planes were very clear as there was little intra-abdominal fat. The ureter and iliac vessels were easily visualized and protected. The cecum and ascending colon were mobilized medially until the sweep of the duodenum was
noted. The duodenum was kept safe from my dissection. After the terminal ileum, cecum and ascending colon were fully mobilized up to the hepatic flexure, I selected a point on the terminal ileum about 15 cm from the ileocolic valve for my proximal
transection point. I created a window in the mesentery with my vessel sealer and divided the bowel using a blue load of the 60 mm robotic stapler. I then selected a point on the ascending colon about 3 to 4 cm distal to the ileocecal valve on
healthy colon. A window was created in the mesentery using the vessel sealer and the ascending colon was divided with a blue load of the robotic stapler. I then divided the mesentery using the vessel sealer, starting from my proximal transection
point and connecting to my distal transection point. I identified the ileocolic pedicle during the division. I did not divide the ileocolic pedicle in a high ligation fashion as this was not an oncologic resection. After dividing the ileocolic
pedicle midway along its length, the pedicle was assessed for hemostasis and was assured. Once the specimen was free, it was seated in the right upper quadrant.
I examined the bowel for my future anastomosis. I placed the terminal ileum adjacent to the ascending colon. This aligned nicely for a [id number]-cy-[id number] isoperistaltic anastomosis without any evidence of tension. I measured 7 cm distal from the staple
line on the ascending colon. I placed a 2-0 Vicryl anchor stitch connecting this point of the ascending colon to the terminal ileum near its staple line. I left the tail long and suspended this in the air to facilitate the stapled anastomosis. In
order to align my future staple line appropriately, I used 2-0 Vicryl stitches to juxtapose the mesenteric border of the terminal ileum to the border of the tinea libera of the ascending colon. I then created a colotomy at about 2 cm distal to the
staple line on the ascending colon and a enterotomy 7 cm proximal to the staple line on the terminal ileum. I advanced the 60 mm robotic stapler with a white load through the bowel openings, ensured ideal alignment and fired. After the robotic
stapler was withdrawn, no bleeding was noted from the staple line. The common defect was then closed using a 3-0 V-Loc suture in 2 layers, starting from the superior aspect and sewing inferiorly in a running baseball fashion, and then superiorly in
a running [place] fashion in order to imbricate the first layer. The operative field was then closely assessed and lightly irrigated. Hemostasis was confirmed. The pelvis was irrigated and suctioned and the effluent was clear.
The robot was undocked and a 4 cm Pfannenstiel incision was made with a 15 blade scalpel 2 fingerbreadths superior to the pubic symphysis, using the previously placed suprapubic robotic port as a guide. I took this down to the level of fascia with
Bovie electrocautery and hemostasis was assured. The anterior fascia was then incised with electrocautery and extended to just beyond the length of the Pfannenstiel incision on each side. Using campos's, the anterior fascia was grasped and
elevated. The attachments to the rectus muscle were taken down bluntly and attachments to the midline were taken down with electrocautery. This was done both superiorly and inferiorly to our incision. Then, the midline was split, first with
electrocautery and then with Kellys to spread the rectus muscle. The preperitoneal fat was and the peritoneum was grasped and elevated. The peritoneum was divided with Metzenbaum scissors and the abdomen was entered. The peritoneum was
opened superiorly and inferiorly to the extent that our incision would allow, taking care to avoid injury to the bladder. A small Arnold was placed. The specimen was then removed and passed off for pathology. The abdomen was visualized through
the Arnold and a small fresh blood clot was noted within the pelvis, which I suctioned. I placed the port cap and reinsufflated the abdomen.
I examined the operative field for hemostasis. There was no additional fluid or blood within the pelvis. I elevated the anastomosis and looked at the retroperitoneum and there was no additional bleeding. I evaluated the anastomosis and there seem
to be a slow ooze of bleeding from the staple line on the terminal ileum. No other bleeding was noted. I desufflated the abdomen and eviscerated the staple line of the terminal ileum, taking care to not put tension on the freshly created
anastomosis. Two spots of oozing along the staple line were controlled with [id number] 3-0 Vicryl stitches. After waiting 4 to 5 minutes, no further bleeding was noted from the staple line. The anastomosis was returned to the abdomen. The
abdomen was reinsufflated. A laparoscopic tap block was then performed, injecting 15 mL of 0.25% Marcaine with epi mixed with dexamethasone at 3 points bilaterally in the transversus abdominis plane. The operative field was assessed once more,
including the staple line of the terminal ileum and the anastomosis. No further bleeding was noted. The omentum was then retracted over the anastomosis. The port sites were removed under direct visualization and no bleeding was noted. The
abdomen was allowed to desufflate. The Pfannenstiel incision was closed in layers. Using an 0 Vicryl stitch, the peritoneum was closed in a running fashion. The incision was then irrigated and hemostasis assured. The fascia was closed with an 0
Stratafix suture. The incisions were irrigated and then injected with the remaining 30mL of local. The skin of the incisions were closed with a 4-0 Monocryl in running subcuticular fashion and dressed with Dermabond.
At this point, the procedure was complete. The patient was awoken and extubated without complication. All needle, sponge and instrument counts were reported as correct. The patient tolerated the procedure well and was transferred to the recovery
room in stable condition with the cardoza in place.
DICTATED BY: Laurent Merlos MD
--- NOTE | 2024-06-11 20:15 | PTCARENOTE ---
Pt return back to [facility] from PACU at 2015. Pt returned with Barrett catheter which is to be removed POD#2. Pt has 5 lap sites [employer] and CDI. Care ongoing.
[2024-06-11] MEDS: TORADOL 15 MG IV (20:59)
[2024-06-11] MEDS: NORMOSOL-R/PLASMALYTE-A 1000 IV (21:57)
[2024-06-11] MEDS: ROXICODONE 5 MG PO (23:29)
[2024-06-12] VITALS (10 sets, daily range): BP systolic 97–127; BP diastolic 61–83; BMI 17.3
[2024-06-12] MEDS: TORADOL 15 MG IV ×3 (02:19→13:05)
[2024-06-12] MEDS: TYLENOL 1000 MG PO ×3 (05:20→17:21)
[2024-06-12 05:49] LABS: % Basophils 0.1 % (0-2); % Immature Granulocytes 0.7 % (0-0.5); % Lymphocytes 3.4 % (20.5-51.1); % Monocytes 4.8 % (1.7-9.3); Absolute Immature Granulocytes 0.1 10^3/uL (0-0.05); Absolute Lymphocytes 0.6 10^3/uL (1.2-3.4); Absolute Monocytes 0.8 10^3/uL (0.1-0.6); Absolute Neutrophils 15.8 10^3/uL (1.4-6.5); Hematocrit 34.5 % (39.0-52.0); Hemoglobin 11.4 g/dL (13.0-18.0); Mean Corpuscular Hgb 28.4 pg (27.0-31.0); Mean Platelet Volume 10.3 fL (7.4-10.4); Nucleated Red Blood Cells % 0 % (-); Platelet Count 272 10^3/uL (130-400); Red Blood Cell Count 4.01 10^6/uL (4.70-6.10); Red Cell Dist. Width 12.6 % (11.5-14.5); White Blood Cell Count 17.4 10^3/uL (4.8-10.8)
[2024-06-12 06:05] LABS: Blood Urea Nitrogen 18 mg/dl (9-20); Calcium 8.8 mg/dl (8.4-10.2); Carbon Dioxide 23 mmol/L (22-30); Chloride 100 mmol/L (98-107); Estimated Creatinine Clearance 92 ml/min; Glucose 119 mg/dl (70-99); Potassium 4.9 mmol/L (3.5-5.1); Sodium 135 mmol/L (135-145); eGFR > 60.00
[2024-06-12] MEDS: NSS (PRESERVATIVE FREE) 10 ML IV (08:13)
[2024-06-12] MEDS: ENTEREG 12 MG PO (08:13)
[2024-06-12] MEDS: PROTONIX IV 40 MG IV (08:14)
--- NOTE | 2024-06-12 11:21 | W.PN.CRS1 ---
Addendum entered and electronically signed by Laurent Merlos MD 06/12/24 20:09:
Updated spouse over the phone
Addendum entered and electronically signed by Laurent Merlos MD 06/12/24 19:56:
Went back to discuss results of CBC with patient. Patient was on the toilet with the nurse. Patient stated that he was not feeling well. He had a moderate-sized bloody bowel movement that was dark red. I entered to help the nurse. I grabbed his
right shoulder and the nurse had the left and then the patient passed out. He did not fall and he remained on the toilet. He came back after a few seconds. We called a rapid and with extra support, we transferred him over to his bed. On the way
over to his bed, he had an additional syncopal episode, but did not fall as he was well-supported. After transferring over to the bed, he woke back up. He said ' how long was I out?' He then immediately started feeling better. Vitals were taken,
BP was 120/70 and heart rate was 90. He denied any additional symptoms, like chest pain, nausea or shortness of breath. His CBC came back and his hemoglobin was 10.4 from 11.4 this morning. Most likely, he had a vasovagal event while having a BM
and he is having a small bleed from the anastomosis, as well as a likely subfascial hematoma. The hematoma has been stable in size over the last hour. Recommend transfer to the IMU for closer monitoring and repeat CBC in 5 to 6 hours. Discussed
with house DOOR FRAME BUILDER who would put in transfer orders.
Addendum entered and electronically signed by Laurent Merlos MD 06/12/24 19:36:
Spoke with the patient. He reports 8-10 small BMs today with dark red blood, the amount of blood has not been increasing but has not been decreasing. He also has had worsening abdominal pain towards his Pfannenstiel incision associated with the
swelling in the area. On exam, his vitals are stable, afebrile, abdomen is nondistended, appropriately tender near incisions, significantly tender over the Pfannenstiel incision; around the Pfannenstiel incision is a raised swelling that is firm,
no subcutaneous hematoma. This is more concerning to me for a subfascial hematoma. I marty an outline of the raised area for tracking purposes. I DC'd his DVT PPx and Toradol. I ordered a stat CBC and 1 g of TXA. I explained that if there is a
precipitous drop in the Hb, I would recommend a CT angiogram to check for active bleeding. Otherwise, continue conservative measures and repeat CBC in the a.m.
Original Note:
Today's Communication / Plan
-
Continue clears
DC Barrett
Lovenox
Assessment/Plan
-
POD#1 Robotic ileocolic resection
-Vitals normal. WBC 17.4 as expected postop. Will trend labs.
-Discontinue Barrett.
-Start Lovenox tonight for DVT prophylaxis. Teds and SCDs in place.
-Continue on clears today given he has not yet had any intake.
-Pain control: Tylenol and Toradol standing, Dilaudid and oxycodone as needed
-Out of bed as tolerated
-OR pathology pending
Subjective Data
Procedure
06/12/24- Robotic ileocolic resection, laparoscopic TAP block
Subjective Data
Date of Service: June 12, 2024
Patient states he has bowel movements. He has pain but it is minimal. He has no nausea or vomiting. He has not tried clears yet.
Objective Data
-
Vital Signs
Temp Pulse Resp BP Pulse Ox
98.2 F 75 18 127/83 100
06/12/24 08:00 06/12/24 08:00 06/12/24 08:00 06/12/24 08:00 06/12/24 08:10
Intake & Output
06/11/24 06/12/24 06/13/24
06:59 06:59 06:59
Intake Total 1005 / 1005 1015 / 1015
Output Total 480 / 480 1300 / 1300
Balance 525 / 525 -285 / -285
Intake:
Oral fluids 480 / 480 240 / 240
IV fluids (Total) 525 / 525 775 / 775
Normosal 100 / 100
IV piggybacks 0 / 0
Output:
Urine, Barrett 1300 / 1300
Urine, Voided 480 / 480
Other:
Number of approximated MODERATE 9
amounts of urine
Lab Results
06/12/24 04:37
06/12/24 04:37
Physical Exam
-
General: No Acute Distress and AOx3
Abdomen: Soft, Non Distended and Non Tender
Skin: Warm and Dry
Incision: Clear, Dry, Intact
--- NOTE | 2024-06-12 13:07 | W.PN.HOSP.TC ---
Today's Communication/Plan
-
Assessment / Plan
Assessment / Plan
Physical Exam
NAD, resting comfortably in bed
Scleral anicteric
Moist mucous membranes
No JVD
CTA bilateral
Normal S1-S2 no murmurs
Soft nontender nondistended bowel sounds active
No peripheral pitting edema
Moves extremities spontaneously
AAOx3
Assessment and plan
Small bowel obstruction secondary to likely fibrostenotic disease in the setting of Crohn's
-Colorectal surgery following
-Off of steroids
-S/p Robotic ileocolic resection, laparoscopic TAP block
-Post-op incentive zackery use
Leukocytosis again, likely reactive from operation
-Without evidence of fever
-Monitor off of antibiotics
-If develops fever then can consider starting antibiotics and checking blood cultures
Anticipated Discharge: > 48 hours
Subjective/Interval History
-
Date of Service: June 12, 2024
seen and examined. no new complaints. no acute overnight
Objective Data
-
Labs:
Laboratory Results
06/12/24
04:37
WBC 17.4 H
Hgb 11.4 L
Hct 34.5 L
Plt Count 272
Sodium 135
Potassium 4.9
Chloride 100
Carbon Dioxide 23
BUN 18
Creatinine 0.9
Glucose 119 H
Calcium 8.8
Vital Signs:
Vital Signs
Temp Pulse Resp BP Pulse Ox
98.2 F 75 18 127/83 100
06/12/24 08:00 06/12/24 08:00 06/12/24 08:00 06/12/24 08:00 06/12/24 08:10
I&O
06/11/24 06/12/24 06/13/24
06:59 06:59 06:59
Intake Total 1005 / 1005 1015 / 1015
Output Total 480 / 480 1300 / 1300
Balance 525 / 525 -285 / -285
--- NOTE | 2024-06-12 14:43 | PN.CDI ---
CDI
- -
CDI:
Physician Documentation Request
Admit Date: 06/08/24 05:44
Dear Doctor Nabil,
Clinical Indicators:
Patient admitted with SBO in setting of Crohn's disease.; s/p Robotic ileocolic resection 06/11.
Anesthesia report, EBL 50 ml IVF 900 ml
Hgb/Hct trend:
06/08/24 06/11/24 06/12/24
03:12 05:01 04:37
Hgb 13.4 12.6 L 11.4 L
Hct 40.0 39.6 34.5 L
Based on the above, could you clarify in the progress notes, the appropriate diagnosis, if significant, that supports the above abnormalities and additional evaluation, monitoring and/or treatment rendered:
Anemia, due to acute blood loss and hemodilution
Anemia due to hemodilution only
Abnormal lab values, clinically insignificant
Other
Use of terms such as suspected, likely, concern for, or probable (associated with a specific diagnosis that is being evaluated, monitored, or treated as if it exists) are acceptable and can be coded in the inpatient setting, when documented at the
time of discharge.
Thank you,
Chelsea Zepeda RN BSN
CDI Specialist
available via tiger text
Please use your independent medical judgment in providing your response.
[2024-06-12] MEDS: NORMOSOL-R/PLASMALYTE-A 1000 IV ×2 (15:22→21:01)
[2024-06-12] MEDS: DILAUDID 0.5 MG IV ×2 (15:23→23:16)
[2024-06-12] MEDS: LOVENOX 40 MG SC (17:22)
[2024-06-12] MEDS: TRANEXAMIC ACID 110 MG IV (19:29)
[2024-06-12] MEDS: ROXICODONE 5 MG PO (19:30)
[2024-06-12 19:35] LABS: % Basophils 0.2 % (0-2); % Eosinophils 0.1 % (0-6); % Immature Granulocytes 0.5 % (0-0.5); % Lymphocytes 13.7 % (20.5-51.1); % Monocytes 7.6 % (1.7-9.3); % Neutrophils 77.9 % (42.2-75.2); Absolute Immature Granulocytes 0.1 10^3/uL (0-0.05); Absolute Lymphocytes 2.5 10^3/uL (1.2-3.4); Absolute Monocytes 1.4 10^3/uL (0.1-0.6); Absolute Neutrophils 14.3 10^3/uL (1.4-6.5); Hematocrit 30.3 % (39.0-52.0); Hemoglobin 10.4 g/dL (13.0-18.0); Mean Corp Hgb Conc. 34.3 g/dL (33.0-37.0); Mean Corpuscular Hgb 28.7 pg (27.0-31.0); Mean Corpuscular Volume 83.5 fL (80.0-94.0); Nucleated Red Blood Cells % 0 % (-); Platelet Count 282 10^3/uL (130-400); Red Blood Cell Count 3.63 10^6/uL (4.70-6.10); Red Cell Dist. Width 12.8 % (11.5-14.5); White Blood Cell Count 18.4 10^3/uL (4.8-10.8)
[2024-06-12 19:47] LABS: Glucose - Point of Care 156 mg/dl (70-99)
--- NOTE | 2024-06-12 19:55 | W.PN.UPDATE ---
Update Note
Progress Note Update
Rapid response was called around 7:45 pm for syncope/ Patient had large bloody bm. Patient seen, assessed by Surgeon at bedside and was transferred to IMU level.
-Few hours later, patient had another large bloody bm, symptomatic patient is dizzy, bradycardia, hypotensive, and lightheaded.
-On assessment, abdomen is tender to touch, slightly firm. incision site clean and intact.
-Hgb level is trending down from 12.6 on 06/11 to 11.4 this am and during FELLER OPERATOR he was 10.4 and now is 9.7.
Type and screen, one unit of blood ordered, will increase IVF rate to 100ml/hr, and H&H monitoring.
-Discussed the case with colorectal surgery and recommended IR for possible embolization.
-New order of CTA abdomen/pelvis placed as recommended by IR search optimization analyst.
-Colorectal surgery& IR search optimization analyst updated with CTA result.
- Patient transferred to ICU level.
--- NOTE | 2024-06-12 20:00 | PTCARENOTE ---
Patient received post rapid response. AAOX3, complaining of abdominal around transverse incision site. Marking checked with offgoing RN- unchanged. NSR on monitor, afebrile, blood pressure as tolerated. Lungs clear, pulse ox 98% on room air.
Abdomen tender with hypoactive bowel sounds. Abdomen with 5 lap sites, open to air, approximated, transverse incision approximated. Tender and slightly firm in area surrounding incision. IV team called to place a new site as old site infiltrated.
Plan of care discussed.
--- NOTE | 2024-06-12 20:00 | PTCARENOTE ---
During hand off @ change of shift, pt was being seen at bedside by Dr Merlos. Pt was reporting increase pain at transverse lap site and increased loose bloody BM throughout shift. MD ordered 1x TXA IV and CBC. Pt was assisted to bathroom where he had
syncope episode on commode with MD and this RN holding him while sitting. Pt awake after a few seconds and assisted back to bed where he had another episode symptomatic with sweats lasting a few seconds. VS 122/74 HR 72 98 RA blood glucose 156. Pt
awake able to make needs known, attending MD reported to transfer to IMU for further evaluation.
--- NOTE | 2024-06-12 20:30 | PTCARENOTE ---
Patient complaining of abdominal pain, patient passed a large amount of blood, heart rate dropped into the 40s. Notified house DEMIAN, orders received.
[2024-06-12] MEDS: ZOFRAN 4 MG IV (21:01)
[2024-06-12] MEDS: DILAUDID IV (21:01)
[2024-06-12 22:00] LABS: Hematocrit 29.7 % (39.0-52.0); Hemoglobin 9.7 g/dL (13.0-18.0)
[2024-06-12] MEDS: ENTEREG PO (22:10)
--- NOTE | 2024-06-12 22:11 | RR ---
A Rapid Response was called on this patient, please see Rapid Response form.
RR called for syncope episode on commode while MD and RN was assisting pt. Pt had another symptomatic episode when returning to bed whit and RN. canceled RR after pt awake and stable, labs where drawn just prior to episode and reported to
transfer pt to IMU.
[2024-06-12 22:16] LABS: Blood Urea Nitrogen 25 mg/dl (9-20); Calcium 8.4 mg/dl (8.4-10.2); Carbon Dioxide 25 mmol/L (22-30); Chloride 101 mmol/L (98-107); Estimated Creatinine Clearance 75 ml/min; Glucose 143 mg/dl (70-99); Magnesium 2.2 mg/dl (1.6-2.3); Potassium 4.5 mmol/L (3.5-5.1); Sodium 135 mmol/L (135-145); eGFR > 60.00
--- NOTE | 2024-06-12 23:04 | PTCARENOTE ---
PRBCs started, family at bedside
--- NOTE | 2024-06-12 23:30 | PTCARENOTE ---
Patient taken to CT
[2024-06-13] VITALS (31 sets, daily range): BP systolic 101–132; BP diastolic 64–88; BMI 16.9
[2024-06-13] MEDS: TYLENOL PO ×2 (00:24→16:46)
--- NOTE | 2024-06-13 01:36 | W.PN.UPDATE ---
Addendum entered and electronically signed by Kelton Gibson MD 06/13/24 02:15:
Apologies - this update note was entered under the wrong patient. No IR procedure has been performed at this time.
Original Note:
Update Note
Progress Note Update
Procedure: SMA and subselective arteriograms
- Neg for any active bleeding
- Pt did drop pressure and became diaphoretic during case with passage of large bowel movement.
- Multiple subselective arteriograms performed in the area of bleeding on CTA with no definitive findings of bleed. There was some vasospasm within the right colic branches
- Pt and updated.
[2024-06-13] MEDS: ATIVAN 0.5 MG PO (02:08)
[2024-06-13 02:52] LABS: % Basophils 0.2 % (0-2); % Immature Granulocytes 0.8 % (0-0.5); % Lymphocytes 8.9 % (20.5-51.1); % Monocytes 6.2 % (1.7-9.3); % Neutrophils 83.9 % (42.2-75.2); Absolute Immature Granulocytes 0.2 10^3/uL (0-0.05); Absolute Lymphocytes 1.7 10^3/uL (1.2-3.4); Absolute Monocytes 1.2 10^3/uL (0.1-0.6); Absolute Neutrophils 15.9 10^3/uL (1.4-6.5); Hematocrit 30.8 % (39.0-52.0); Hemoglobin 10.5 g/dL (13.0-18.0); Mean Corp Hgb Conc. 34.1 g/dL (33.0-37.0); Mean Corpuscular Hgb 28.9 pg (27.0-31.0); Mean Corpuscular Volume 84.8 fL (80.0-94.0); Mean Platelet Volume 10.5 fL (7.4-10.4); Nucleated Red Blood Cells % 0 % (-); Platelet Count 264 10^3/uL (130-400); Red Blood Cell Count 3.63 10^6/uL (4.70-6.10)
--- NOTE | 2024-06-13 03:13 | PTCARENOTE ---
Patients repeat labs sent, patient with moderate sized liquid bloody bowel movement
[2024-06-13 05:41] LABS: % Basophils 0.1 % (0-2); % Eosinophils 0.1 % (0-6); % Immature Granulocytes 0.8 % (0-0.5); % Lymphocytes 13.6 % (20.5-51.1); % Monocytes 7.3 % (1.7-9.3); % Neutrophils 78.1 % (42.2-75.2); Absolute Immature Granulocytes 0.1 10^3/uL (0-0.05); Absolute Lymphocytes 2.1 10^3/uL (1.2-3.4); Absolute Monocytes 1.1 10^3/uL (0.1-0.6); Hematocrit 27.9 % (39.0-52.0); Hemoglobin 9.4 g/dL (13.0-18.0); Mean Corp Hgb Conc. 33.7 g/dL (33.0-37.0); Mean Corpuscular Hgb 28.7 pg (27.0-31.0); Mean Corpuscular Volume 85.3 fL (80.0-94.0); Mean Platelet Volume 10.5 fL (7.4-10.4); Nucleated Red Blood Cells % 0 % (-); Platelet Count 224 10^3/uL (130-400); Red Blood Cell Count 3.27 10^6/uL (4.70-6.10); White Blood Cell Count 15.4 10^3/uL (4.8-10.8)
[2024-06-13] MEDS: DILAUDID 0.5 MG IV (05:44)
[2024-06-13 05:47] LABS: INR 1.21; PT 15.6 Sec (11.4-14.6)
[2024-06-13 05:48] LABS: APTT 26.2 Sec (23.4-35.0)
[2024-06-13 05:57] LABS: Blood Urea Nitrogen 22 mg/dl (9-20); Calcium 8.2 mg/dl (8.4-10.2); Carbon Dioxide 25 mmol/L (22-30); Chloride 105 mmol/L (98-107); Estimated Creatinine Clearance 92 ml/min; Glucose 101 mg/dl (70-99); Magnesium 2.3 mg/dl (1.6-2.3); Phosphorus 3.2 mg/dl (2.5-4.5); Potassium 4.9 mmol/L (3.5-5.1); Sodium 137 mmol/L (135-145); eGFR > 60.00
--- NOTE | 2024-06-13 07:11 | CON.INTV ---
Consultation
Consultation Request
Date/Time Consultation Requested: 06/13/2024-7 AM
Date/Time Consultation Performed: 06/13/24/730 a.m.
Requesting Provider: Hospitalist
Performing Provider: Dr. Fung
Reason for Consultation: Crohn's exacerbation/critical care management
Medical History
-
Chief Complaint: Abdominal pain
History of Present Illness:
34-year-old male with a history of Crohn's disease presented 06/08/2024 with left lower quadrant abdominal pain after recent hospitalization for similar symptoms treated with steroids and went to operating room 06/11/2024 for robotic ileocolic
resection by Dr. Merlos and subsequent bleeding noted and transferred to ICU-spray mixer consulted for postoperative/bleeding/critical care management 06/13/2024. Patient feels improved. He denies any shortness of breath, chest pain, chest
tightness, productive cough, and his abdominal pain overall has improved. Did not complain of any focal weakness or lower extremity swelling.
Past Medical History
Past Medical History: None (Crohn's disease. Eye surgery.)
Social History
Tobacco: Non-smoker
Alcohol: None
Drug: None
Personal:
Living: With Family
Occupational Exposures: No known asbestos exposure
Environmental Exposures: no known tuberculosis exposure
Family History
Family History: Reviewed & Not Pertinent
Allergies / Home Medications
Allergies
Allergy/AdvReac Type Severity Reaction Status Date / Time
No Known Allergies Allergy Verified 04/18/23 23:20
Home Medications
�Medication �Instructions �Recorded �Confirmed �Last Taken �Type
risankizumab-rzaa 360 mg/2.4 mL 360 mg SC UD Crohns disease 06/01/24 06/08/24 06/04/24 History
(150 mg/mL) subcut wearable
injector (Skyrizi)
prednisone 10 mg tablet 10 mg PO DAILY #74 tabs 06/03/24 06/08/24 Unknown Rx
Review of Systems
-
Unable to Obtain full review of systems at this time due to: Other (Per HPI)
Vitals / Labs / Diagnostic Testing
Vital Signs
Temp Pulse Resp BP Pulse Ox
98.6 F 80 12 111/76 100
06/13/24 03:22 06/13/24 07:00 06/13/24 07:00 06/13/24 07:00 06/13/24 07:00
Lab Data
06/13/24 05:25
06/13/24 05:25
Laboratory Results
06/13/24
05:25
PT 15.6 H
INR 1.21
APTT 26.2
Diagnostic Testing:
Physical Exam
-
Exam:
Well-nourished and well-developed in no apparent distress
HEENT-atraumatic, normocephalic, some mild temporal wasting
Neck-supple, no JVD, no bruit
Heart-regular rate and rhythm-no murmurs, rubs or gallops
Chest-clear to auscultation, no wheezes, crackles
Back-no tenderness
Abdomen soft, mild tenderness at incision site
Extremities-no cyanosis, clubbing, edema and good peripheral pulses
Integument-intact, no rashes, lesions or ecchymosis
Neurology-alert and oriented, nonfocal motor and sensory exam
Assessment
-
34-year-old male with a history of Crohn's disease presented 06/08/2024 with left lower quadrant abdominal pain after recent hospitalization for similar symptoms treated with steroids and went to operating room 06/11/2024 for robotic ileocolic
resection by Dr. Merlos and subsequent bleeding noted and transferred to ICU-spray mixer consulted for postoperative/bleeding/critical care management 06/13/2024.
Crohn's flare-recurrent
Status post robotic ileocolonic resection-Dr. Merlos 06/11/2024
Postop bleeding most likely from anastomosis-bleeding associated with hypotension and dizziness
Small bowel obstruction
Rectus hematoma
Leukocytosis-WBC 15.4
Anemia due to acute blood loss-hemoglobin 9.4
Mild hyperglycemia
Conditions present prior to admission:
Crohn's disease-initially started on Hum2022 with transition to [facility] February 2023
Eye surgery 5 years old
Vitamin D deficiency
Iron deficiency anemia
Plan
Patient transferred to ICU with hypotension requiring pressors
Supplemental oxygen as needed
Incentive spirometry
Nebulizers if needed-currently not bronchospastic
Monitor abdominal pain
Operative records reviewed 06/11/2024
Colorectal surgery following-correspondence reviewed
Postop bleeding suspected from anastomotic site
Currently no evidence for active bleeding-received 1 dose of tranexanuc acid 06/12/2024
Follow hemoglobin
Transfuse as needed
Monitor rectus hematoma
Monitor blood sugar
Insulin supplementation as needed
DVT prophylaxis-mechanical
GI prophylaxis-pantoprazole
Nutrition per colorectal surgery
Early mobilization/physical therapy
If able to be weaned off pressors and no further bleeding patient could be transferred out of ICU-call pulmonary if respiratory issues arise
Critical care statement: A total of 55 minutes of critical care time was provided for this patient today. This includes management of unstable vital signs, evaluation of the patient at bedside, reviewing the patient's pertinent medical records
including radiographs, microbiology, laboratory evaluations, and discussion with primary team, consultants, pharmacy, nutrition, physical therapy, case management, charge nurse, critical care nursing, and respiratory therapy.
Diagnostic data:
Chest x-ray 06/13/2024-NAD, postoperative free intraperitoneal air
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
CT abdomen and pelvis 06/12/2024-bilateral rectus intramuscular hematomas, postoperative changes
Data Reviewed
-
EKG: Report reviewed by me
Radiology: Report reviewed by me
CT Scan: Report reviewed by me
Medical Tests (Nuc Med, Echo etc): Report reviewed by me
Labs: Labs reviewed by me
Old Records: Reviewed
Critical Care Time (in minutes): 55
[2024-06-13] MEDS: NORMOSOL-R/PLASMALYTE-A 1000 IV ×3 (07:35→20:58)
--- NOTE | 2024-06-13 08:15 | PTCARENOTE ---
Pt with small liquid yaya adrian while Dr. Santos present at the bedside. After observing the color and quantity of the stool he reassured the pt that it was 'old blood' and explained what we would be monitoring and reviewed the options should he
require any intervention/surgical procedures. RN remained with the pt and provided supportive care and reiterated specifically that as a whole I would be monitoring his physical presentation, HR, BP, number & frequency of stools and the color and my
nursing interventions. Dr. Santos will allow sips of water sparingly. Room conducive to rest. Safe environment maintained.
[2024-06-13] MEDS: TYLENOL 1000 MG PO ×2 (09:36→19:48)
[2024-06-13] MEDS: NSS (PRESERVATIVE FREE) 10 ML IV (09:37)
[2024-06-13] MEDS: ENTEREG 12 MG PO ×2 (09:37→19:48)
[2024-06-13] MEDS: PROTONIX IV 40 MG IV (09:37)
--- NOTE | 2024-06-13 10:42 | W.PN.CRS1 ---
Today's Communication / Plan
-
Continue to monitor hgb and hold all anticoagulants.
if he continues to bleed, consider angiogram, colonoscopy or surgery. We discussed the risks and benefits of each.
I left a message with an update on his spouse's phone.
Assessment/Plan
-
POD#2 Robotic ileocolic resection
-Vitals normal. WBC 15.4 as expected postop.
- Postop bleeding, most likely from the anastomosis.
the bleeding was associated with hypotension and dizziness.
- No evidence of active bleeding. He received 1 dose of tranexanuc acid yesterday.
All anticoagulants have been held
Continue to trend Hgb
- Rectus hematoma (probably incisional) should resolve. The overlying skin is normal.
- Teds, SCDs and ambulation for DVT prophylaxis.
- Sips of clears only.
-Pain control: Tylenol, Dilaudid and oxycodone as needed (Toradol held)
-Out of bed as tolerated
-OR pathology pending
Subjective Data
Procedure
06/12/24- Robotic ileocolic resection, laparoscopic TAP block
Subjective Data
Date of Service: June 13, 2024
He had a couple of episodes of large bloody bowel movements last night associated with mild hypotension. He received 1 unit of blood and his hemoglobin this morning is 9.4 g/dL. He underwent a CT angio last night and the only bleeding source
identified was on the left side of bilateral rectus intramuscular hematomas. He has had a few smaller bowel movements through the night and the recent 1 that I visualized looks like old blood. He denies any abdominal pain other than some mild
tenderness at the lower incision. He denies any nausea or vomiting.
Objective Data
-
Vital Signs
Temp Pulse Resp BP Pulse Ox
97.9 F 78 20 121/78 100
06/13/24 07:52 06/13/24 10:00 06/13/24 10:00 06/13/24 08:00 06/13/24 10:00
Intake & Output
06/12/24 06/13/24 06/14/24
06:59 06:59 06:59
Intake Total 1015 / 1015 2120 / 2220 500 / 500
Output Total 1300 / 1300 350 / 350 170 / 170
Balance -285 / -285 1770 / 1870 330 / 330
Intake:
Oral fluids 240 / 240 720 / 720
IV fluids (Total) 775 / 775 900 / 1000 500 / 500
Normosal 100 / 100 150 / 150
Normosol-R/Plasmalyte-A 1,000 900 / 1000 200 / 200
ml @ 100 mls/hr IV .Q10H MADALYN Rx
#:[id number]
Normosol-R/Plasmalyte-A 1,000 150 / 150
ml @ 150 mls/hr IV .Q6H40M MADALYN
Rx#:[id number]
IV piggybacks 0 / 0
Blood Products 250 / 250
Packed red blood cells 250 / 250
Blood Product Amount Infused ( 250 / 250
mL)
Packed Rbc Leukoreduced Unit 250 / 250
[id number]
Output:
Urine, Barrett 1300 / 1300
Urine, Voided 350 / 350 170 / 170
Lab Results
06/13/24 05:25
Physical Exam
-
General: No Acute Distress
Abdomen: Soft and Non Tender
Extremities: No Calf Tenderness
Incision: Other (The lower Pfannenstiel incision has swelling but no overlying skin changes. The trocar sites incisions are all clean.)
Data Reviewed
-
CT Scan: Image Reviewed, Report Reviewed and Discussed with Radiology
--- NOTE | 2024-06-13 11:00 | PTCARENOTE ---
No changes in assessment. Since 0700 he has had 5 burgundy stools small to moderate. Asymptomatic when passing stool. HR 80, SBP 120's. No pain or cramping. He admits to some discomfort when burping. No flatus as far as he can tell. and Mother
at the bedside.
[2024-06-13 11:53] LABS: Hematocrit 25.6 % (39.0-52.0); Hemoglobin 8.8 g/dL (13.0-18.0)
--- NOTE | 2024-06-13 12:37 | PTCARENOTE ---
Binghamsherin ARCINIEGA notified via TT of recent H/H results and #4 liquid burgundy stool since they saw him this morning. Reviewed hemodynamics and that he is not experiencing pain or discomfort when having BM. Will continue to monitor. Pt aware of the
plan of care.
[2024-06-13] MEDS: TRANEXAMIC ACID 110 MG IV (13:53)
--- NOTE | 2024-06-13 14:43 | W.PN.HOSP.TC ---
Addendum entered and electronically signed by Shaun Ferrer MD 06/13/24 17:37:
underweight
Original Note:
Today's Communication/Plan
-
Assessment / Plan
Assessment / Plan
Physical Exam
NAD, resting comfortably in bed
Scleral anicteric
Moist mucous membranes
No JVD
CTA bilateral
Normal S1-S2 no murmurs
Soft nontender nondistended bowel sounds active
No peripheral pitting edema
Moves extremities spontaneously
AAOx3
Assessment and plan
Acute blood loss anemia
-s/p 1u prbc
-related to recema bowel surgery with anastomosis
-surgery following
-will monitor
Small bowel obstruction secondary to likely fibrostenotic disease in the setting of Crohn's
-Colorectal surgery following
-Off of steroids
-S/p Robotic ileocolic resection, laparoscopic TAP block
-Post-op incentive zackery use
Leukocytosis again, likely reactive from operation
-Without evidence of fever
-Monitor off of antibiotics
-If develops fever then can consider starting antibiotics and checking blood cultures
Anticipated Discharge: > 48 hours
Subjective/Interval History
-
Date of Service: June 13, 2024
seen and examined. no new complaints. multiple bm - blood, symptomatic anemia
Objective Data
-
Labs:
Laboratory Results
06/13/24 06/13/24 06/13/24
02:39 05:25 11:41
WBC 19.0 H 15.4 H
Hgb 10.5 L 9.4 L 8.8 L
Hct 30.8 L 27.9 L 25.6 L
Plt Count 264 224
PT 15.6 H
INR 1.21
APTT 26.2
Sodium 137
Potassium 4.9
Chloride 105
Carbon Dioxide 25
BUN 22 H
Creatinine 0.9
Glucose 101 H
Calcium 8.2 L
06/13/24
18:00
WBC
Hgb Pending
Hct Pending
Plt Count
PT
INR
APTT
Sodium
Potassium
Chloride
Carbon Dioxide
BUN
Creatinine
Glucose
Calcium
Vital Signs:
Vital Signs
Temp Pulse Resp BP Pulse Ox
98.2 F 72 12 114/70 100
06/13/24 11:19 06/13/24 12:30 06/13/24 12:30 06/13/24 12:00 06/13/24 12:30
I&O
06/12/24 06/13/24 06/14/24
06:59 06:59 06:59
Intake Total 1015 / 1015 2120 / 2220 1330 / 1330
Output Total 1300 / 1300 350 / 350 390 / 390
Balance -285 / -285 1770 / 1870 940 / 940
--- NOTE | 2024-06-13 16:00 | PTCARENOTE ---
Stool appears to be more brown than burgundy. Urine color more yellow than car. He also stated he is passing flatus, no pain or discomfort with that. Denies nausea. Safe environment maintained.
[2024-06-13] MEDS: ZOFRAN 4 MG IV (17:12)
[2024-06-13 17:42] LABS: Hemoglobin 8.2 g/dL (13.0-18.0)
--- NOTE | 2024-06-13 19:12 | PTCARENOTE ---
Dr. Santos TT recent H/H results of . Recent vitals provided along with quantity and color of stool. Serial H/H ordered.
--- NOTE | 2024-06-13 20:00 | PTCARENOTE ---
Patient received in bed, AAOX3, offers no complaints. NSR on monitor, afebrile, blood pressure as documented. Palpable pulses, no edema noted. Knee high teds and SCDs maintained. Lungs clear, pulse ox 98% on room air. Abdomen soft with
hypoactive bowel sounds. Rates pain 2/10. passing moderate amount of liquid brown/ green stool. Voiding clear yellow urine. Lap sites and transverse incision approximated and open to air. #22 g in LFA with IVF infusing as ordered. #20 g in RAC
and #18 g in RFA flushed and patent. Call ospina within reach, plan of care discussed.
[2024-06-14] VITALS (24 sets, daily range): BP systolic 104–146; BP diastolic 66–93; BMI 17.8
[2024-06-14 00:04] LABS: Hematocrit 22.6 % (39.0-52.0); Hemoglobin 7.7 g/dL (13.0-18.0)
--- NOTE | 2024-06-14 00:15 | PTCARENOTE ---
Patient reassessed, offers no new complaints. liquid brown stool noted, repeat H&H sent, notified house GENERATION ENGINEERING TECHNOLOGIST, will continue to monitor, and redraw in AM. Patient resting comfortably with eyes close.
[2024-06-14] MEDS: TYLENOL 1000 MG PO ×4 (00:45→19:30)
[2024-06-14] MEDS: NORMOSOL-R/PLASMALYTE-A 1000 IV ×2 (03:11→09:27)
--- NOTE | 2024-06-14 04:00 | PTCARENOTE ---
Patient reassessed, sleeping when not disturbed.
[2024-06-14 06:37] LABS: Hemoglobin 7.3 g/dL (13.0-18.0); Mean Corp Hgb Conc. 33.2 g/dL (33.0-37.0); Mean Corpuscular Hgb 29.4 pg (27.0-31.0); Mean Corpuscular Volume 88.7 fL (80.0-94.0); Mean Platelet Volume 10.6 fL (7.4-10.4); Platelet Count 177 10^3/uL (130-400); Red Blood Cell Count 2.48 10^6/uL (4.70-6.10); Red Cell Dist. Width 13.2 % (11.5-14.5); White Blood Cell Count 9.4 10^3/uL (4.8-10.8)
[2024-06-14 06:42] LABS: Blood Urea Nitrogen 18 mg/dl (9-20); Calcium 7.8 mg/dl (8.4-10.2); Carbon Dioxide 24 mmol/L (22-30); Chloride 104 mmol/L (98-107); Estimated Creatinine Clearance 107 ml/min; Glucose 63 mg/dl (70-99); Potassium 4.3 mmol/L (3.5-5.1); Sodium 138 mmol/L (135-145); eGFR > 60.00
--- NOTE | 2024-06-14 06:56 | PTCARENOTE ---
Hgb noted, order received
[2024-06-14] MEDS: NSS (PRESERVATIVE FREE) 10 ML IV (07:32)
[2024-06-14] MEDS: ENTEREG 12 MG PO ×2 (07:32→20:29)
[2024-06-14] MEDS: PROTONIX IV 40 MG IV (07:32)
--- NOTE | 2024-06-14 07:40 | PTCARENOTE ---
Received pt awake and alert. Glucose on chemistry was 63. Dr. Oscar Ferrer notified via TT. Pt was provided apple juice with AM meds. He reports a dull headache. Left fa with IVF, urine clear yellow. Good peripheral pulses. Knee hi scd's and ABEL's
intact. Removed both for skin inspection. He was encouraged to use the IS today hourly while awake and to brush his teeth to prevent PNA/Atelectasis. He stated his goal was to sit in the chair and brush his teeth. Lungs remain CTA. Hyperactive BSX4.
+flatus. Reviewed the plan of care regarding monitoring color, frequency, consistency and symptoms while passing stool and expected orders from Dr. Santos regarding advancing his diet and possible discontinuing IVF, OOB and ambulation. He verbalized
his understanding.
--- NOTE | 2024-06-14 07:46 | W.PN.INTV ---
Today's Communication / Plan
Recommendations
Monitor bleeding
Transfuse as needed
Colorectal surgery following
If no longer bleeding and hemodynamically stable then transfer out of ICU-call pulmonary if respiratory issues arise
Assessment
-
34-year-old male with a history of Crohn's disease presented 06/08/2024 with left lower quadrant abdominal pain after recent hospitalization for similar symptoms treated with steroids and went to operating room 06/11/2024 for robotic ileocolic
resection by Dr. Merlos and subsequent bleeding noted and transferred to ICU-cad engineer consulted for postoperative/bleeding/critical care management 06/13/2024.
Crohn's flare-recurrent
Status post robotic ileocolonic resection-Dr. Merlos 06/11/2024
Postop bleeding most likely from anastomosis-bleeding associated with hypotension and dizziness
Small bowel obstruction
Rectus hematoma
Leukocytosis-WBC 15.4
Anemia due to acute blood loss-hemoglobin 9.4
Mild hyperglycemia
Conditions present prior to admission:
Crohn's disease-initially started on 2022 with transition to [facility] February 2023
Eye surgery 5 years old
Vitamin D deficiency
Iron deficiency anemia
Plan
Hemodynamics have improved-bleeding has slowed down
Supplemental oxygen if needed
Incentive spirometry-encouraged
Nebulizers if needed-currently not bronchospastic
Monitor abdominal pain-slowly improving
Operative records reviewed 06/11/2024
Colorectal surgery following-correspondence reviewed
Decrease IV fluids
Postop bleeding suspected from anastomotic site
Currently no evidence for active bleeding-received 2 doses of tranexanuc acid 06/12/2024 and again on 06/13/2024
Follow hemoglobin-currently 7.3
Transfuse continues as needed
Monitor rectus hematoma
Monitor blood sugar
Insulin supplementation as needed
DVT prophylaxis-mechanical
GI prophylaxis-pantoprazole
Nutrition per colorectal surgery-advance to clear liquids
Early mobilization/physical therapy
If able to be weaned off pressors and no further bleeding patient could be transferred out of ICU-call pulmonary if respiratory issues arise
Reviewed the patient's pertinent medical records including radiographs, microbiology, laboratory evaluations, and discussion with primary team, consultants, pharmacy, nutrition, physical therapy, case management, charge nurse, critical care
nursing, and respiratory therapy.
Diagnostic data:
Chest x-ray 06/13/2024-NAD, postoperative free intraperitoneal air
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
CT abdomen and pelvis 06/12/2024-bilateral rectus intramuscular hematomas, postoperative changes
Subjective Dataa
Subjective Data
Date of Service:
Date of Service: June 14, 2024
Chief Complaint: Eligibility Consultant Follow Up and Pulmonary Follow Up
Subjective:
Feels better, abdominal pain improved, no nausea, no obvious bleeding, no shortness of breath or chest pain
Review of Systems
General: Other (Per HPI)
Objective Data
Data Reviewed
Vital Signs / I&O / Oxygen:
Vital Signs
Temp Pulse Resp BP Pulse Ox
98.2 F 81 19 107/71 97
06/14/24 00:00 06/14/24 05:00 06/14/24 05:00 06/14/24 05:00 06/14/24 05:00
Intake and Output
06/13/24 06/14/24 06/15/24
06:59 06:59 06:59
Intake Total 2120 / 2220 3730 / 3730
Output Total 350 / 350 1385 / 1385
Balance 1770 / 1870 2345 / 2345
SaO2 97
Nasal Cannula flow liters per 100
minute
Physical Exam
General: Respiratory Distress (n) and Comfortable
HEENT: Normocephalic, Anicteric and Moist Mucous Membranes
Cardiovascular: Regular Rhythm
Respiratory: Wheeze (n), Crackles (n), Rhonchi (n), Non-Labored Respirations, Accessory Resp Muscle Use (n) and Stridor (n)
GI: Soft, Non Distended and Non Tender
Neurology: Awake, Alert and No Motor Deficits
Skin: Warm, Good Color, Cyanosis (n), Jaundice (n) and Rash (n)
Labs/Micro/Reports
Lab Data
06/14/24 05:39
06/14/24 05:39
[2024-06-14 08:06] LABS: Glucose - Point of Care 80 mg/dl (70-99)
--- NOTE | 2024-06-14 09:35 | PTCARENOTE ---
C/O continued mild H/A. in room and opened the blinds. Glucose 97. Too soon for Tylenol. Blinds pulled shut. Did not want an ice pack at this time. PRBC's infusing without difficulty. Will continue to monitor.
[2024-06-14 09:46] LABS: Glucose - Point of Care 97 mg/dl (70-99)
--- NOTE | 2024-06-14 10:43 | W.PN.CRS1 ---
Today's Communication / Plan
-
clears
stop ivfs when tolerating clears
recheck h/h 2 hrs post transfusion
Assessment/Plan
-
POD#3 Robotic ileocolic resection
- Vitals normal. WBC noramlized to 9.4.
- Hemaglobin - 7.3, s/p 1 unit PRBCs this AM. Repeat h/h post transfusion.
- All anticoagulants have been held
- Rectus hematoma (probably incisional) should resolve. The overlying skin is normal.
- Teds, SCDs and ambulation for DVT prophylaxis.
- Advance diet to clears.
-Okay to stop IVFs once tolerating clears.
-Pain control: Tylenol, Dilaudid and oxycodone as needed (Toradol held)
-Out of bed as tolerated
-OR pathology pending
Subjective Data
Procedure
06/12/24- Robotic ileocolic resection, laparoscopic TAP block
Subjective Data
Date of Service: June 14, 2024
Patient states he is feeling a lot better. His stool frequency is decreasing and they are now non-bloody. He has not had a stool in six hours. He is not nauseous or vomiting. His pain is mild and improved. His only complaint is that he has a mild
headache.
Objective Data
-
Vital Signs
Temp Pulse Resp BP Pulse Ox
98.4 F 66 16 109/69 99
06/14/24 08:19 06/14/24 10:00 06/14/24 10:00 06/14/24 10:00 06/14/24 10:00
Intake & Output
06/13/24 06/14/24 06/15/24
06:59 06:59 06:59
Intake Total 2120 / 2220 3730 / 3880 600 / 600
Output Total 350 / 350 1385 / 1385 280 / 280
Balance 1770 / 1870 2345 / 2495 320 / 320
Intake:
Oral fluids 720 / 720 120 / 120
IV fluids (Total) 900 / 1000 3500 / 3650 600 / 600
Normosal 150 / 150
Normosol-R/Plasmalyte-A 1,000 900 / 1000 200 / 200
ml @ 100 mls/hr IV .Q10H MADALYN Rx
#:[id number]
Normosol-R/Plasmalyte-A 1,000 3150 / 3300 600 / 600
ml @ 150 mls/hr IV .Q6H40M MADALYN
Rx#:[id number]
IV piggybacks 110 / 110
Blood Products 250 / 250
Packed red blood cells 250 / 250
Blood Product Amount Infused ( 250 / 250 0 / 0
mL)
Packed Rbc Leukoreduced Unit 0 / 0
[id number]
Packed Rbc Leukoreduced Unit 250 / 250
[id number]
Output:
Urine, Voided 350 / 350 1385 / 1385 280 / 280
Lab Results
06/14/24 05:39
Physical Exam
-
General: No Acute Distress and AOx3
Abdomen: Soft, Non Distended, Non Tender (mild around lower incision) and Other (small hematoma palpable around lower midline incision (unchanged per outline))
Skin: Warm and Dry
--- NOTE | 2024-06-14 10:46 | PTCARENOTE ---
Discussed the plan of care with Dr. Santos and Helena CRESPO. He can be transferred to tele. RN will get pt OOB prior to transfer.
--- NOTE | 2024-06-14 12:40 | W.PN.HOSP.TC ---
Today's Communication/Plan
-
CLD
-advance per surgery recs
FOllow hgb, repeat CBC post transfusion
Incentive zackery use
Downgrade to tele
Assessment / Plan
Assessment / Plan
Physical Exam
NAD, resting comfortably in bed
Scleral anicteric
Moist mucous membranes
No JVD
CTA bilateral
Normal S1-S2 no murmurs
Soft nontender nondistended bowel sounds active
No peripheral pitting edema
Moves extremities spontaneously
AAOx3
Assessment and plan
Acute blood loss anemia
-s/p 1u prbc
-as hgb continues to trend down will give additional 1u prbc
-related to recemt bowel surgery with anastomosis
-surgery following
-will monitor
Small bowel obstruction secondary to likely fibrostenotic disease in the setting of Crohn's
-Colorectal surgery following
-Off of steroids
-S/p Robotic ileocolic resection day 3, laparoscopic TAP block
-Post-op incentive zackery use
-CLD
Leukocytosis again, likely reactive from surgery now resolved
Anticipated Discharge: 24 - 48 hours
Subjective/Interval History
-
Date of Service: June 14, 2024
seen and examined. no new compalints. no acute ovenright events
feeling much better
at bedside
tolerating incentive zackery well
brown stools now
Objective Data
-
Labs:
Laboratory Results
06/14/24 06/14/24
05:39 12:30
WBC 9.4
Hgb 7.3 L Pending
Hct 22.0 L Pending
Plt Count 177 D
Sodium 138
Potassium 4.3
Chloride 104
Carbon Dioxide 24
BUN 18
Creatinine 0.8
Glucose 63 L
Calcium 7.8 L
Vital Signs:
Vital Signs
Temp Pulse Resp BP Pulse Ox
98.4 F 76 20 113/70 98
06/14/24 12:09 06/14/24 11:19 06/14/24 11:19 06/14/24 11:19 06/14/24 11:19
I&O
06/13/24 06/14/24 06/15/24
06:59 06:59 06:59
Intake Total 2120 / 2220 3730 / 3880 1000 / 1000
Output Total 350 / 350 1385 / 1385 280 / 280
Balance 1770 / 1870 2345 / 2495 720 / 720
[2024-06-14 14:14] LABS: Hematocrit 27.6 % (39.0-52.0); Hemoglobin 9.2 g/dL (13.0-18.0)
--- NOTE | 2024-06-14 15:41 | PTCARENOTE ---
Report provided to Herminia DANIEL for room 2113. He will be transferred via w/c with tele. Pt and family aware of transfer.
[2024-06-14] MEDS: NORMOSOL-R/PLASMALYTE-A IV (17:07)
[2024-06-15] MEDS: TYLENOL 1000 MG PO ×4 (01:00→19:45)
[2024-06-15 02:34] VITALS: BP 116/65
[2024-06-15 05:36] VITALS: BMI 18.0
[2024-06-15 05:40] VITALS: BMI 17.9
[2024-06-15 06:32] LABS: Hematocrit 25.5 % (39.0-52.0); Hemoglobin 8.7 g/dL (13.0-18.0); Mean Corp Hgb Conc. 34.1 g/dL (33.0-37.0); Mean Corpuscular Hgb 29.8 pg (27.0-31.0); Mean Corpuscular Volume 87.3 fL (80.0-94.0); Mean Platelet Volume 10.8 fL (7.4-10.4); Platelet Count 186 10^3/uL (130-400); Red Blood Cell Count 2.92 10^6/uL (4.70-6.10); Red Cell Dist. Width 12.9 % (11.5-14.5); White Blood Cell Count 8.2 10^3/uL (4.8-10.8)
[2024-06-15 07:01] LABS: Blood Urea Nitrogen 8 mg/dl (9-20); Calcium 8.2 mg/dl (8.4-10.2); Carbon Dioxide 26 mmol/L (22-30); Chloride 103 mmol/L (98-107); Estimated Creatinine Clearance 107 ml/min; Glucose 76 mg/dl (70-99); Potassium 4.2 mmol/L (3.5-5.1); Sodium 138 mmol/L (135-145); eGFR > 60.00
[2024-06-15] MEDS: ENTEREG 12 MG PO ×2 (07:36→19:45)
[2024-06-15] MEDS: NSS (PRESERVATIVE FREE) 10 ML IV (07:36)
[2024-06-15] MEDS: PROTONIX IV 40 MG IV (07:36)
[2024-06-15 07:45] VITALS: BP 105/67
--- NOTE | 2024-06-15 11:09 | W.PN.HOSP.TC ---
Today's Communication/Plan
-
Doing well post op
encourage ambulation
can advance diet
Assessment / Plan
Assessment / Plan
Physical Exam
General: Not in distress
HEENT: Normocephalic and Anicteric
Respiratory: Clear
Cardiac: Regular Rhythm
GI: Soft, Non Distended and clean surgery site
Musculoskeletal: No Clubbing and No Cyanosis
Skin: Warm and Dry
Neuro: Awake, Alert and AO x 3
Psych: Calm
Assessment and plan
Acute blood loss anemia
hemorrhagic shock, resolved. Stable Bp
-s/p 1u prbc
Stable HGB
-will monitor
#Small bowel obstruction/ Crohn's disease with terminal ileal stricture ( likely fibrostenotic disease in the setting of Crohn's)
No abd pain
Some bruising noted in penis related to surgery, no skin tear, not tender and no swelling/lump felt.
-S/p Robotic ileocolic resection. laparoscopic TAP block by Dr Merlos on 06/12
Tolerating liquid diet, stop IVF, can advance diet
Appreciate surgery/ GI help
#Leukocytosis again, likely reactive from surgery now resolved
Total time spent to see the patient, examine the patient on the floor, review data and lab results, discuss treatment plan with patient, nursing staff around 55 minutes
Anticipated Discharge: 24 - 48 hours
Subjective/Interval History
-
Date of Service: June 15, 2024
Objective Data
-
Labs:
Laboratory Results
06/15/24
04:48
WBC 8.2
Hgb 8.7 L
Hct 25.5 L
Plt Count 186
Sodium 138
Potassium 4.2
Chloride 103
Carbon Dioxide 26
BUN 8 L
Creatinine 0.8
Glucose 76
Calcium 8.2 L
Vital Signs:
Vital Signs
Temp Pulse Resp BP Pulse Ox
98.1 F 63 17 105/67 99
06/15/24 07:45 06/15/24 07:45 06/15/24 07:45 06/15/24 07:45 06/15/24 07:45
I&O
06/14/24 06/15/24 06/16/24
06:59 06:59 06:59
Intake Total 3730 / 3880 3400 / 3400
Output Total 1385 / 1385 3125 / 3125
Balance 2345 / 2495 275 / 275
--- NOTE | 2024-06-15 12:00 | W.PN.CRS1 ---
Today's Communication / Plan
-
regular diet
continue to hold lovenox
Assessment/Plan
-
POD#4 Robotic ileocolic resection
- Vitals normal. WBC normalized to 8.2
- Hemoglobin - 8.7 (9.2, 7.3)
- All anticoagulants have been held - continue to hold Lovenox
- Rectus hematoma (probably incisional) should resolve. The overlying skin is normal.
- Teds, SCDs and ambulation for DVT prophylaxis.
- Advance diet to regular.
-Pain control: Tylenol, Dilaudid and oxycodone as needed (Toradol held)
-Out of bed as tolerated
-OR pathology pending
Subjective Data
Procedure
06/12/24- Robotic ileocolic resection, laparoscopic TAP block
Subjective Data
Date of Service: June 15, 2024
Patient states he is feeling much better today. He denies nausea or vomiting. He has had 3 or 4 bowel movements since yesterday that have been brown in nature with no blood associated with them. His last bowel movement yesterday was at 3 PM. He
is urinating without difficulty. His pain is currently a 2 or a 3. He is hungry.
Objective Data
-
Vital Signs
Temp Pulse Resp BP Pulse Ox
98.1 F 63 17 105/67 99
06/15/24 07:45 06/15/24 07:45 06/15/24 07:45 06/15/24 07:45 06/15/24 07:45
Intake & Output
06/14/24 06/15/24 06/16/24
06:59 06:59 06:59
Intake Total 3730 / 3880 3400 / 3400
Output Total 1385 / 1385 3125 / 3125
Balance 2345 / 2495 275 / 275
Intake:
Oral fluids 120 / 120 2100 / 2100
IV fluids (Total) 3500 / 3650 1050 / 1050
Normosal 150 / 150
Normosol-R/Plasmalyte-A 1,000 200 / 200
ml @ 100 mls/hr IV .Q10H MADALYN Rx
#:[id number]
Normosol-R/Plasmalyte-A 1,000 3150 / 3300 1050 / 1050
ml @ 150 mls/hr IV .Q6H40M MADALYN
Rx#:[id number]
IV piggybacks 110 / 110
Blood Product Amount Infused ( 250 / 250
mL)
Packed Rbc Leukoreduced Unit 250 / 250
[id number]
Output:
Urine, Voided 1385 / 1385 3125 / 3125
Lab Results
06/15/24 04:48
06/15/24 04:48
Physical Exam
-
General: No Acute Distress and AOx3
Abdomen: Soft, Non Distended and Tender (mild around incisions)
Skin: Warm and Dry
Incision: Clear, Dry, Intact
--- NOTE | 2024-06-15 12:14 | CM ---
Patient seen sitting in chair
Regular diet ordered
PLAN: Home, no needs anticipated
Family to transport
[2024-06-15 15:50] VITALS: BP 129/85
[2024-06-16 00:19] VITALS: BP 109/66
[2024-06-16] MEDS: TYLENOL PO (00:45)
[2024-06-16 05:46] LABS: Hematocrit 28.4 % (39.0-52.0); Hemoglobin 9.4 g/dL (13.0-18.0); Mean Corp Hgb Conc. 33.1 g/dL (33.0-37.0); Mean Corpuscular Hgb 29.2 pg (27.0-31.0); Mean Corpuscular Volume 88.2 fL (80.0-94.0); Mean Platelet Volume 9.9 fL (7.4-10.4); Platelet Count 234 10^3/uL (130-400); Red Blood Cell Count 3.22 10^6/uL (4.70-6.10); Red Cell Dist. Width 13.2 % (11.5-14.5); White Blood Cell Count 7.5 10^3/uL (4.8-10.8)
[2024-06-16 06:00] VITALS: BMI 17.0
[2024-06-16] MEDS: TYLENOL 1000 MG PO (06:03)
[2024-06-16 06:06] LABS: Blood Urea Nitrogen 8 mg/dl (9-20); Carbon Dioxide 28 mmol/L (22-30); Chloride 105 mmol/L (98-107); Estimated Creatinine Clearance 90 ml/min; Glucose 99 mg/dl (70-99); Potassium 4.5 mmol/L (3.5-5.1); Sodium 141 mmol/L (135-145); eGFR > 60.00
[2024-06-16 07:55] VITALS: BP 120/78
[2024-06-16] MEDS: ENTEREG 12 MG PO (08:26)
[2024-06-16] MEDS: NSS (PRESERVATIVE FREE) 10 ML IV (08:26)
[2024-06-16] MEDS: PROTONIX IV 40 MG IV (08:26)
--- NOTE | 2024-06-16 08:51 | W.PN.CRS1 ---
Today's Communication / Plan
-
okay for d/c from our perspective
Assessment/Plan
-
POD#5 Robotic ileocolic resection
- Vitals normal. WBC normalized to 7.5
- Hemoglobin - 9.4
- All anticoagulants have been held.
- Rectus hematoma (probably incisional) should resolve. The overlying skin is normal.
- Teds, SCDs and ambulation for DVT prophylaxis.
- Continue regular.
-Pain control: Tylenol, Dilaudid and oxycodone as needed (Toradol held)
-Out of bed as tolerated
-OR pathology pending
-OKay for d/c from our perspective. Follow-up with Dr. Merlos in 2 weeks for postoperative appointment.
Subjective Data
Procedure
06/12/24- Robotic ileocolic resection, laparoscopic TAP block
Subjective Data
Date of Service: June 16, 2024
Patient states he feels well. He has no nausea or vomiting. He is tolerating a diet. He had bowel movements without blood. He has been out of bed. His pain is controlled.
Objective Data
-
Vital Signs
Temp Pulse Resp BP Pulse Ox
98.0 F 70 17 120/78 99
06/16/24 07:55 06/16/24 07:55 06/16/24 07:55 06/16/24 07:55 06/16/24 07:55
Intake & Output
06/15/24 06/16/24 06/17/24
06:59 06:59 06:59
Intake Total 3400 / 3400 1440 / 1440
Output Total 3125 / 3125 600 / 600
Balance 275 / 275 840 / 840
Intake:
Oral fluids 2100 / 2100 1440 / 1440
IV fluids (Total) 1050 / 1050
Normosol-R/Plasmalyte-A 1,000 1050 / 1050
ml @ 150 mls/hr IV .Q6H40M MADALYN
Rx#:[id number]
Blood Product Amount Infused ( 250 / 250
mL)
Packed Rbc Leukoreduced Unit 250 / 250
[id number]
Output:
Urine, Voided 3125 / 3125 600 / 600
Other:
Number of approximated MODERATE 3
amounts of urine
Lab Results
06/16/24 05:27
06/16/24 05:27
Physical Exam
-
General: No Acute Distress and AOx3
Abdomen: Soft, Non Distended and Non Tender
Skin: Warm and Dry
Incision: Clear, Dry, Intact
--- NOTE | 2024-06-16 09:30 | W.DCSUMMARY ---
Discharge Summary
Discharge Data
Date of Admission: 06/08/24
Date of Discharge: 06/16/24
-
Pending Results: No
Hospital Course
33 years old male with history of recent hospitalization presented with recurrent partial small bowel obstruction due to recurrent terminal ileal stricture. He failed the treatment with a steroid and modified diet. Patient was evaluated by
colorectal surgery and gastroenterology doctors. He underwent robotic ileocolic resection procedure. Diet was advanced slowly. Patient tolerated diet well. He had bilateral intramuscular rectal hematomas that did not need an intervention. He
was monitored in ICU setting postoperatively due to hypotension that later resolved. He received blood transfusion, 2 units to treat multifactorial anemia of blood loss anemia and anemia of chronic disease. Patient remained hemodynamically stable
and was discharged home in a stable condition.
Physical Exam
General: Not in distress
HEENT: Normocephalic and Anicteric
Respiratory: Clear
Cardiac: Regular Rhythm
GI: Soft, Non Distended and clean surgery site
Musculoskeletal: No Clubbing and No Cyanosis
Skin: Warm and Dry
Neuro: Awake, Alert and AO x 3
Psych: Calm.
Total time spent to see the patient, examine the patient, review data and lab results, discuss treatment plan with patient, surgery, nursing care around 55 minutes
Discharge Plan
-
Patient Disposition: Home (Routine Discharge)
Discharge Diagnosis/Procedures: Small bowel obstruction/ Crohn's disease with terminal ileal stricture ( likely fibrostenotic disease in the setting of Crohn's) : S/p Robotic ileocolic resection. laparoscopic TAP block by Dr Merlos on 06/12.
Follow with GI and surgery doctors regarding further treatments.
Anemia due to blood loss and anemia of chronic disease, status post blood transfusion.
Diet: Regular
Activity: No strenuous activity
Additional Activity: No lifting over 10 pounds (gallon of milk)
Driving Restrictions: No driving for 1 week
Wound Care: Allow glue to naturally fall off. Do not pick at incision.
Referrals:
Juan Jose Earl PA-C [Family Provider] - in one to two weeks
Laurent Merlos MD [Active] - in two weeks
Prescriptions:
New
tramadol 50 mg tablet
50 mg PO Q6H PRN (Reason: Pain) Qty: 20 0RF
acetaminophen [Tylenol Extra Strength] 500 mg Tablet
1,000 mg PO QIDPRN PRN (Reason: fever or pain) Qty: 20 0RF
Discontinued
Skyrizi 360 mg/2.4 mL (150 mg/mL) wearable injector
360 mg SC UD
Rx Instructions:
just compleated the 3 inital infusions, due to start injections on this week
prednisone 10 mg tablet
10 mg PO DAILY Qty: 74 0RF
Rx Instructions:
Take 40 mg(4tabs) daily for 7 days,30 mg(3tabs) daily for 7 days,20 mg(2tabs) daily for 7 days,10 mg daily for 7 days
Discharge Orders:
Discharge Patient (As Directed); Ordered 06/16/24
Ordered By: See Melo
Discharge Date and Time
Discharge Date/Time: 06/16/24 12:01
Print Language: SRI LANKAN
--- NOTE | 2024-06-16 10:40 | CM ---
Patient seen at bedside.
Patient to be discharged today.
No needs
PLAN: home, no needs
Parents to transport
[2024-06-16 10:43] VITALS: BP 124/79
== END 2024-06-16 12:01 | disposition home or self-care (01) | DRG 329 ==
LOC: 2 SOUTH 05:44
PROVIDERS: Hospitalist; Nurse Practitioner Family; Physician Assistant; Surgery; ADMITTING PHYSICIAN Hospitalist; ATTENDING PHYSICIAN Internal Medicine; CONSULT PHYSICIAN Internal Medicine; CONSULT PHYSICIAN Internal Medicine Critical Care Medicine; CONSULT PHYSICIAN Surgery; EMERGENCY PHYSICIAN Emergency Medicine; FAMILY PHYSICIAN Physician Assistant Medical
PROC: 8E0W4CZ Robotic Assisted Procedure of Trunk Region, Percutaneous Endoscopic Approach (ICD-10-PCS; 2024-06-11)
PROC: 0DTH4ZZ Resection of Cecum, Percutaneous Endoscopic Approach (ICD-10-PCS; 2024-06-11)
PROC: 30233N1 Transfusion of Nonautologous Red Blood Cells into Peripheral Vein, Percutaneous Approach (ICD-10-PCS; 2024-06-12)
DX: K50.012 Crohn's disease of small intestine with intestinal obstruction (principal); T81.19XA Other postprocedural shock, initial encounter; D62 Acute posthemorrhagic anemia; Q43.8 Other specified congenital malformations of intestine; K91.840 Postprocedural hemorrhage of a digestive system organ or structure following a digestive system procedure; Z68.1 Body mass index [BMI] 19.9 or less, adult; D63.8 Anemia in other chronic diseases classified elsewhere; E55.9 Vitamin D deficiency, unspecified; Z79.52 Long term (current) use of systemic steroids; Z87.891 Personal history of nicotine dependence; D72.828 Other elevated white blood cell count; T38.0X5A Adverse effect of glucocorticoids and synthetic analogues, initial encounter; Y83.2 Surgical operation with anastomosis, bypass or graft as the cause of abnormal reaction of the patient, or of later complication, without mention of misadventure at the time of the procedure; R73.9 Hyperglycemia, unspecified; R63.6 Underweight
CPT/HCPCS: 88307; 71045; 74174; 74177; 80048; 80053; 82962; 83605; 83690; 83735; 84100; 84134; 85014; 85018; 85025; 85027; 85610; 85652; 85730; 86140; 86850; 86900; 86901; 86920; 93005; 96361; 96374; 96375; 96376; 99285; J1335; P9016; P9045; Q9967

== ENCOUNTER 2024-10-26 06:33 | Day surgery (SDC) | payer BC, SELFPAY | END 2024-10-26 15:25 | disposition home or self-care (01) | LOC: GI 06:33 | PROVIDERS: ATTENDING PHYSICIAN Internal Medicine | DX: K44.9 Diaphragmatic hernia without obstruction or gangrene (principal); K31.89 Other diseases of stomach and duodenum; D50.9 Iron deficiency anemia, unspecified; Z98.0 Intestinal bypass and anastomosis status; K52.9 Noninfective gastroenteritis and colitis, unspecified; K50.80 Crohn's disease of both small and large intestine without complications; K29.50 Unspecified chronic gastritis without bleeding; K22.89 Other specified disease of esophagus | CPT/HCPCS: 43239; 45380; 88305; 88342 ==

== ENCOUNTER 2024-12-15 14:29 | Outpatient (RCR) | payer BC, SELFPAY ==
[2024-12-15 14:48] VITALS: BP 124/71
[2024-12-15] MEDS: INJECTAFER 265 MG IV (14:50)
[2024-12-15 16:06] VITALS: BP 105/75
== END 2024-12-16 11:03 | disposition home or self-care (01) ==
LOC: OID 14:29
PROVIDERS: ATTENDING PHYSICIAN Internal Medicine; FAMILY PHYSICIAN Physician Assistant Medical
DX: D50.0 Iron deficiency anemia secondary to blood loss (chronic) (principal); K50.018 Crohn's disease of small intestine with other complication; K92.2 Gastrointestinal hemorrhage, unspecified
CPT/HCPCS: 96365; J1439

== ENCOUNTER 2024-12-22 14:31 | Outpatient (RCR) | payer BC, SELFPAY ==
[2024-12-22] MEDS: INJECTAFER 265 MG IV (14:52)
[2024-12-22 14:54] VITALS: BP 108/68
[2024-12-22 15:50] VITALS: BP 98/66
== END 2024-12-23 10:32 | disposition home or self-care (01) ==
LOC: OID 14:31
PROVIDERS: ATTENDING PHYSICIAN Internal Medicine; FAMILY PHYSICIAN Physician Assistant Medical
DX: D50.0 Iron deficiency anemia secondary to blood loss (chronic) (principal); K50.018 Crohn's disease of small intestine with other complication; K92.2 Gastrointestinal hemorrhage, unspecified
CPT/HCPCS: 96365; J1439

== ENCOUNTER → 2025-02-23 12:12 | Outpatient (REF) | payer BC, SELFPAY | LOC: RAD 12:12 | PROVIDERS: ATTENDING PHYSICIAN Internal Medicine; FAMILY PHYSICIAN Physician Assistant Medical | DX: K50.018 Crohn's disease of small intestine with other complication (principal); K92.2 Gastrointestinal hemorrhage, unspecified | CPT/HCPCS: 74019 ==